=== PATIENT | male | born 1960 | race Caucasian/White ===

== ENCOUNTER 2018-05-06 17:12 | Inpatient (IN) ==
[2018-05-06] MEDS ORDERED: Sod Chloride 0.9% Inj 1,000 ML IV.SIG ONE (17:35)
--- NOTE | 2018-05-06 17:45 | ED ---
HPI General Chief Complaint: Syncope Stated Complaint: Medical Time Seen by Provider: 05/06/18 17:17 History of Present Illness HPI narrative: This patient had a syncopal episode. He has history of A. fib and CHF. He had 2 beers at a bar and while there was lightheaded and passed out. He was caught and let down and there was no injury. It is more moderate to severe. He did not have any chest pain or shortness of breath. He is found to be hypotensive. On arrival he is 82/44. He is in A. fib with RVR. Symptoms exacerbated by his cardiac condition and likely from alcohol and Xanax use. He took one 2 mg Xanax dose. He denies overdose or overmedication. He denies narcotics. No alleviating factors. Duration 1 hour Related Data Home Medications Medication Instructions Recorded Confirmed alprazolam [Xanax] 2 mg PO BID 05/06/18 05/06/18 apixaban [Eliquis] 5 mg PO BID 05/06/18 05/06/18 digoxin 0.25 mg PO DAILY 05/06/18 05/06/18 metoprolol tartrate 100 mg PO BID 05/06/18 05/06/18 sacubitril-valsartan [Entresto] 1 tab PO BID 05/06/18 05/06/18 Allergies Allergy/AdvReac Type Severity Reaction Status Date / Time Penicillins Allergy Chills Verified 05/06/18 17:14 Sulfa (Sulfonamide Allergy Arrhythmias Verified 05/06/18 17:14 Antibiotics) Review of Systems ROS: all other systems reviewed are negative PMFSH Medical History Medical History A-fib (Acute) CHF (congestive heart failure) (Acute) Social History Social History Substance History: Active Abuse Second Hand Smoke Exposure: No Smoking Status: Current some day smoker Tobacco Type: Cigarettes How Often Do You Have a Drink Containing Alcohol: 2 to 3 times a week Recent Travel in [facility] within the Last 8 Weeks: No Recent Out of Country Travel within the Last 8 Weeks: No Substance Abuse Detail Marijuana: Substance Use Status: Active Immunization History Tetanus Immunization: <5 Years Exam Narrative Exam Narrative: GENERAL: Well-nourished, well-developed patient who seems pale and lethargic . SKIN: Focused skin assessment reveals no rash and nodules. Skin is Warm and dry. HEAD: Atraumatic. Normocephalic. EYES: Pupils equal and round. No scleral icterus. No injection or drainage. ENT: No nasal bleeding or discharge. Mucous membranes pink and moist. NECK: Trachea midline. No JVD. No meningeal signs. No midline tenderness. CARDIOVASCULAR: Irregularly irregular rhythm. No murmur appreciated. Rate is variable between 100 -140 RESPIRATORY: No accessory muscle use. Clear to auscultation. Breath sounds equal bilaterally. GASTROINTESTINAL: Abdomen soft, non-tender, nondistended. Hepatic and splenic margins not palpable. MUSCULOSKELETAL: No obvious deformities. No clubbing. No cyanosis. No edema. NEUROLOGICAL: Awake but seems lethargic. No obvious cranial nerve deficits. Motor grossly within normal limits. Slowed but understandable speech. PSYCHIATRIC: Groggy and lethargic mood and affect; insight and judgment may be mildly impaired. Course Initial Documented Vital Signs Pulse Rate 115 H 05/06/18 17:23 Respiratory Rate 18 05/06/18 17:23 Blood Pressure 102/64 05/06/18 17:23 Pulse Oximetry 98 05/06/18 17:23 Last Documented Vital Signs Pulse Rate 72 05/06/18 18:38 Respiratory Rate 17 05/06/18 18:38 Blood Pressure 143/76 H 05/06/18 18:38 Pulse Oximetry 100 05/06/18 18:38 Critical Care Time Critical Care Time: Yes Total Critical Care Time: 80 Attestation: Aggregate critical care time was 80 minutes. Time to perform other separately billable procedures was not included in the critical care time. My time did not include minutes spent treating any other patients simultaneously or on activities that did not directly contribute to the patient's treatment. The services I provided to this patient were to treat and/or prevent clinically significant deterioration that could result in: Cardiopulmonary arrest, cardiac arrhythmia, hypovolemic shock I provided critical care services requiring my management, as noted below: Chart data review, documentation time, medication orders and management, vital sign assessments/reviewing monitor data, ordering and reviewing lab tests, ordering and interpreting/reviewing x-rays and diagnostic studies, care of the patient and discussion of the patient with the admitting physicians. Medical Decision Making MDM Narrative Medical decision making narrative: This is a 57-year-old male with syncope and arrives with some significant hypotension. He is running in the 70s and 80s systolic. He is alert and talking but seems a bit drowsy. I reviewed with cardiology given his A. fib and discussed synchronized cardioversion. Cardiology did not really recommend that given his rates are running between 90 and 120s and he doubts that would be the cause of his hypotension. Rectal exam is negative for blood in stool. His CBC is normal. He has no leukocytosis nor anemia nor fever. He walked into the bar feeling fine and abruptly became like this. I have given him 2.5 L of normal saline IV bolus and his blood pressure has not changed. Chest x-ray does not demonstrate any CHF. I placed a Hale catheter and he has no urine in the bladder. I am starting Levophed at 8 mcg/kg/min. I do not want to antagonize his heart rate any further with dopamine. Blood pressure started to come up it is now 88 systolic up from 68 when I started the Levophed. Troponin and dig levels are normal. CBC is normal. Metabolic studies fairly normal. Etiology of his hypotension is unclear. I spoke with the manager financial reporting who will admit to intensive care on the pressor support. He recommended a CTA of the chest which I have ordered. Medical Screen Exam Complete: Yes Emergency Medical Condition: Yes Lab Data Lab results narrative: Metabolic studies and cardiac enzymes and dig level and CBC all normal Result diagrams: 05/06/18 17:38 05/06/18 17:38 Lab Results 05/06/18 05/06/18 Range/Units 17:38 17:38 WBC 10.6 (4.0-11.0) th/mm3 RBC 4.41 L (4.50-5.90) mil/mm3 Hgb 13.7 (13.0-17.0) gm/dL Hct 39.3 (39.0-51.0) % MCV 89.0 (80.0-100.0) fL MCH 31.2 (27.0-34.0) pg MCHC 35.0 (32.0-36.0) % RDW 14.7 (11.6-17.2) % Plt Count 237 (150-450) th/mm3 MPV 8.2 (7.0-11.0) fL Neut % (Auto) 39.6 (16.0-70.0) % Lymph % (Auto) 48.4 H (9.0-44.0) % [place] % (Auto) 7.7 (0.0-8.0) % Eos % (Auto) 3.8 (0.0-4.0) % Baso % (Auto) 0.5 (0.0-2.0) % Neut # (Auto) 4.2 (1.8-7.7) th/mm3 Lymph # (Auto) 5.1 H (1.0-4.8) th/mm3 [place] # (Auto) 0.8 (0.0-0.9) th/mm3 Eos # (Auto) 0.4 (0.0-0.4) th/mm3 Baso # (Auto) 0.1 (0.0-0.2) th/mm3 WBC Differential . Differential Comment Auto diff final Sodium 141 (136-145) meq/L Potassium 3.8 (3.5-5.1) meq/L Chloride 105 (98-107) meq/L Carbon Dioxide 25.8 (21.0-32.0) meq/L Anion Gap 10 (5-15) meq/L BUN 19 H (7-18) mg/dL Creatinine 1.30 (0.60-1.30) mg/dL Estimated GFR 57 L (>89) mL/min Random Glucose 87 (74-106) mg/dL Calcium 7.7 L (8.5-10.1) mg/dL Total Bilirubin 0.6 (0.2-1.0) mg/dL AST 23 (15-37) U/L ALT 30 (12-78) U/L Alkaline Phosphatase 59 (45-117) U/L Total Creatine Kinase 52 (39-308) U/L Troponin I Less than 0.02 L (0.02-0.05) ng/mL Total Protein 6.0 L (6.4-8.2) g/dL Albumin 3.0 L (3.4-5.0) g/dL Digoxin 1.2 (0.8-2.0) ng/mL Serum Alcohol 21 H (0-5) mg/dL Imaging Data Attestation: I personally reviewed and interpreted this imaging study as follows : My impression: Chest x-ray shows no CHF. There is some left basilar atelectasis Radiologist's impression: Chest X-Ray 05/06/18 17:36 CONCLUSION: Left basilar infiltrates or atelectasis. Discharge Plan Discharge Disposition Patient Disposition: 30 Still Patient Discharge Details Diagnosis: Syncope due to orthostatic hypotension, Afib Physicians Team ED Provider: Darrick Henderson Rxs /Orders / Referrals /Forms Prescriptions: No Action metoprolol tartrate 100 mg Tablet 100 mg PO BID RF: 0 digoxin 250 mcg Tablet 0.25 mg PO DAILY RF: 0 apixaban [Eliquis] 5 mg Tablet 5 mg PO BID RF: 0 sacubitril-valsartan [Entresto] 24-26 mg Tablet 1 tab PO BID RF: 0 alprazolam [Xanax] 2 mg Tablet 2 mg PO BID RF: 0 Discharge Interventions Interventions: Vital Signs Last Done: 05/06/18 18:38 Status ED Status: Admitted Patient
[2018-05-06 17:47] LABS: Baso # (Auto) 0.1 th/mm3 (0.0-0.2); Baso % (Auto) 0.5 % (0.0-2.0); Eos # (Auto) 0.4 th/mm3 (0.0-0.4); Eos % (Auto) 3.8 % (0.0-4.0); Hematocrit 39.3 % (39.0-51.0); Hemoglobin 13.7 gm/dL (13.0-17.0); Lymph # (Auto) 5.1 th/mm3 (1.0-4.8); Lymph % (Auto) 48.4 % (9.0-44.0); Mean Corpuscular Hemoglobin 31.2 pg (27.0-34.0); Mean Platelet Volume 8.2 fL (7.0-11.0); Mono # (Auto) 0.8 th/mm3 (0.0-0.9); Mono % (Auto) 7.7 % (0.0-8.0); Neut # (Auto) 4.2 th/mm3 (1.8-7.7); Neut % (Auto) 39.6 % (16.0-70.0); Platelet Count 237 th/mm3 (150-450); Red Blood Count 4.41 mil/mm3 (4.50-5.90); Red Cell Distribution Width 14.7 % (11.6-17.2); White Blood Count 10.6 th/mm3 (4.0-11.0)
--- NOTE | 2018-05-06 17:53 | XR ---
EXAM DATE: 05/06/2018 5:49 PM EST AGE/SEX: 57 years / Male INDICATIONS: Syncope. Patient passed out today. CLINICAL DATA: This is the patient's initial encounter. Patient reports that signs and symptoms have been present for 1 day and indicates a pain score of 0/10. MEDICAL/SURGICAL HISTORY: Hypertension. None. COMPARISON: No prior exams available for comparison. FINDINGS: Frontal view of the chest demonstrates mild elevation of left hemidiaphragm and ill-defined areas of opacity obscuring portions of the left hemidiaphragm. The right lung is clear. The heart is normal in size. No evidence of mediastinal shift. No evidence of pneumothorax. CONCLUSION: Left basilar infiltrates or atelectasis. Electronically signed by: Hernandez Worley MD 05/06/2018 5:51 PM EST
[2018-05-06 18:11] LABS: Alanine Aminotransferase 30 U/L (12-78); Anion Gap 10 meq/L (5-15); Aspartate Aminotransferase 23 U/L (15-37); Blood Urea Nitrogen 19 mg/dL (7-18); Calcium 7.7 mg/dL (8.5-10.1); Carbon Dioxide 25.8 meq/L (21.0-32.0); Chloride 105 meq/L (98-107); Glomerular Filtration Rate 57 mL/min (>89); Glucose,Random 87 mg/dL (74-106); Potassium 3.8 meq/L (3.5-5.1); Sodium 141 meq/L (136-145)
[2018-05-06 18:14] LABS: Alcohol 21 mg/dL (0-5)
[2018-05-06] MEDS ORDERED: Norepinephrine Inj 4 MG/4 ML Ampul ONE (18:16)
[2018-05-06 18:25] LABS: Alkaline Phosphatase 59 U/L (45-117); Digoxin 1.2 ng/mL (0.8-2.0)
[2018-05-06 18:31] LABS: Creatine Kinase 52 U/L (39-308)
[2018-05-06 18:53] LABS: Amphetamine Screen,Urine Neg (Neg); Barbiturate Screen,Urine Neg (Neg); Cannabinoid Screen,Urine Pos (Neg); Cocaine Screen,Urine Neg (Neg)
[2018-05-06 18:57] LABS: Opiate Screen,Urine Neg (Neg)
[2018-05-06 19:00] LABS: Bilirubin,Urine Negative (Negative); Clarity,Urine Hazy (Clear); Color,Urine Yellow (Yellw/Straw); Glucose,Urine (UA) Negative (Negative); Hyaline Casts,Urine 7 /lpf (0-3); Leukocyte Esterase,Urine Negative (Negative); Mucus,Urine Few /lpf (Occasional); Nitrite,Urine Negative (Negative); Specific Gravity,Urine 1.009 (1.002-1.035); Squamous Epithelial Cell,Urine <1 /hpf (0-5)
[2018-05-06] MEDS ORDERED: Bisacodyl 10 MG Supp RECTAL PRN (19:13)
[2018-05-06] MEDS ORDERED: Digoxin Inj 500 MCG/2 ML Ampul IV.PUSH ONE (19:31)
[2018-05-06] MEDS ORDERED: Digoxin Inj 500 MCG/2 ML Ampul IV.PUSH STA (19:32)
--- NOTE | 2018-05-06 19:39 | CT ---
EXAM DATE: 05/06/2018 7:28 PM EST AGE/SEX: 57 years / Male INDICATIONS: syncopal episode. CLINICAL DATA: This is the patient's initial encounter. Patient reports that signs and symptoms have been present for 1 day and indicates a pain score of 0/10. MEDICAL/SURGICAL HISTORY: Cardiovascular disease. Afib None. RADIATION DOSE: 16.81 CTDI (mGy) COMPARISON: . TECHNIQUE: Volumetric scanning was performed using a multi-row detector CT scanner during bolus infu kelsey of 75 ml Omnipaque 350 (iohexol) nonionic water-soluble contrast as a single exam dose. The arlyn a was post processed with a variety of visualization algorithms including full volume maximum intensi ty projection and sliding thin slab reformation. Using automated exposure control and adjustment of t he mA and/or kV according to patient size, radiation dose was kept as low as reasonably achievable to obtain optimal diagnostic quality images. DICOM format image data is available electronically for r eview and comparison. FINDINGS: Pulmonary Arteries: No filling defects are seen in the pulmonary arteries out to the subsegmental ve ssels. The left and right pulmonary arteries are normal in diameter. Lung: Patchy left basilar infiltrates and subsegmental consolidation adjacent to the left heart bord er.. Small infiltrates in the dependent right midlung. Several pulmonary cysts in the medial left upp er lung. Effusion: None. Mediastinum: No evidence of mediastinal or hilar adenopathy. 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 Other: The axilla is unremarkable. CONCLUSION: 1. The study is negative for pulmonary embolism. 2. Patchy bibasilar infiltrates, left greater than right. Electronically signed by: Hernandez Worley MD 05/06/2018 7:38 PM EST
[2018-05-06] MEDS: Sod Chloride 0.9% Inj 1,000 ML IV.CONT SCH (19:41)
--- NOTE | 2018-05-06 19:51 | P.HPCC ---
History of Present Illness Service: critical care medicine Primary Care Physician: MARYELLEN HERNANDEZ Chief Complaint: Passed out History of Present Illness: 57-year-old male with a medical history significant for CHF, atrial fibrillation on anticoagulation with Eliquis who was recently started on Entresto about 10 days ago and has had a previous stress test per his around February 2018 after which he was told that he did not have any blockages and was diagnosed with a cardiomyopathy. He has been evaluated by Dr. Cruz of [facility] in the [facility] and was evaluated at [facility]. At that time he also had a left pneumothorax for which he required surgery. Patient was at a birthday libertarian today and suddenly passed out and fell to the ground. Patient cannot recall the event however his states that just prior to the event he was doing fine without any chest pain or shortness of breath. He has been feeling more tired over the last week since starting the Entresto. He denies any fevers, chills, chest pain or shortness of breath. In fact he is on room air however was extremely hypotensive on arrival with systolic blood pressure in the 60s and A. fib with RVR. His heart rate improved to the 90s-100s however he remained hypotensive despite 2.5 L of IV fluid bolus and was started on Levophed for pressor support by ER physician. Dr. Burns from [facility] was contacted by Dr. Carter earlier. Patient was accepted for admission by critical care medicine service. When I evaluated the patient in the ER he was on Levophed at 10 mics per minute with a systolic blood pressure 110. He was awake and alert on room air at the time, did not appear short of breath, denied any chest pain. He denied any focal weakness in either extremities or any speech disturbance. He has not had any diarrhea melena or rectal bleeding. Patient was evaluated about 10 days back per his was told "his heart function was around 35%"which is up from the initial 20% in February 2018. Inpatient Certification: I certify that the inpatient services were ordered in accordance with Medicare regulations governing the order. This includes certification that hospital inpatient services are reasonable and necessary and in the case of services not specified as inpatient-only under 42 CFR 419.22(n), that they are appropriately provided as inpatient services in accordance to with the 2-midnight benchmark under 43 CFR 412.3(e) Estimated Total Length of Stay (Days): 4 Plans for Post Hospital Care: Not yet determined Review of Systems All other systems reviewed negative except as stated in HPI [facility] - History History Provided By: Patient - Medical History Medical History: Medical History (Last Updated 05/06/18 @ 19:37 by Carlos Adames MD) A-fib CHF (congestive heart failure) Pneumothorax on left - Family History Family History: Family History (Last Updated 05/06/18 @ 19:38 by Carlos Adames MD) Mother Family history of diabetes mellitus Father Atrial fibrillation - Tobacco History Second Hand Smoke Exposure: No Tobacco Use In Past 30 Days: Yes Smoking Status: Current some day smoker Tobacco Type: Cigarettes - Alcohol History How Often Do You Have a Drink Containing Alcohol: 2 to 3 times a week - Substance Use History Substance History: Active Abuse - Substance Use Type Marijuana Status: Active - Travel History Recent Travel in the [place] Within the Last 8 Weeks: No Recent Travel Out of the Country Within the Last 8 Weeks: No - Immunization History Tetanus Immunization: <5 Years Medications and Allergies Active Medications: Active Medications Al Hydroxide/Mg Hydroxide (Milk Of Magnesia Liq) 30 ml PO Q12H PRN PRN Reason: Mild Constipation Bisacodyl (Dulcolax Supp) 10 mg RECTAL DAILY PRN PRN Reason: SEVERE CONSITIPATION Chlorhexidine Gluconate (Chlorhexidine 2% Cloth) 3 pack TOPICAL DAILY@0400 HILARIO Stop: 05/12/18 03:59 Chlorhexidine Gluconate (Chlorhexidine 2% Cloth) 3 pack TOPICAL DAILY@0400 PRN PRN Reason: Extra cloth needed Stop: 05/12/18 03:59 Digoxin (Lanoxin Inj) 500 mcg IV.PUSH ONCE STA Stop: 05/06/18 19:23 Famotidine (Pepcid Pf Inj) 20 mg IV.PUSH Q12HR HILARIO Norepinephrine Bitartrate (Levophed-Dextrose 4 Mg/250 Ml Drip) 4 mg in 250 mls @ 30 mls/hr IV.SIG TITRATE PRN; Protocol PRN Reason: Per Protocol Last Titration: 05/06/18 18:40 Dose: 10 mcg/min, 37.5 mls/hr Sodium Chloride (Ns Inj) 1,000 mls @ 60 mls/hr IV.CONT .[id number] HILARIO Lactulose (Lactulose Liq) 30 ml PO DAILY PRN PRN Reason: SEVERE CONSITIPATION Ondansetron HCl (Zofran Inj) 4 mg IV.PUSH Q6H PRN PRN Reason: NAUSEA OR VOMITING Senna/Docusate Sodium (Roshni-Colace) 1 tab PO BID [facility] Sennosides (Senokot) 17.2 mg PO Q12H PRN PRN Reason: Moderate Constipation Sodium Chloride (Ns Flush) 2 ml IV.FLUSH BID HILARIO Sodium Chloride (Ns Flush) 2 ml IV.FLUSH PRN PRN PRN Reason: FLUSH AFTER USING IV ACCESS Terbutaline Sulfate (Brethine Inj) 1 mg SQ UNSCH PRN PRN Reason: For Extravasation Allergies Allergy/AdvReac Type Severity Reaction Status Date / Time Penicillins Allergy Chills Verified 05/06/18 17:14 Sulfa (Sulfonamide Allergy Arrhythmias Verified 05/06/18 17:14 Antibiotics) Home Medications Medication Instructions Recorded Confirmed Type alprazolam [Xanax] 2 mg PO BID 05/06/18 05/06/18 History apixaban [Eliquis] 5 mg PO BID 05/06/18 05/06/18 History digoxin 0.25 mg PO DAILY 05/06/18 05/06/18 History metoprolol tartrate 100 mg PO BID 05/06/18 05/06/18 History sacubitril-valsartan [Entresto] 1 tab PO BID 05/06/18 05/06/18 History Results - Labs CBC & Chem 7: 05/06/18 17:38 05/06/18 17:38 Labs: Short CBC 05/06/18 Range/Units 17:38 WBC 10.6 (4.0-11.0) th/mm3 Hgb 13.7 (13.0-17.0) gm/dL Hct 39.3 (39.0-51.0) % Plt Count 237 (150-450) th/mm3 BMP 05/06/18 17:38 Sodium 141 Potassium 3.8 Chloride 105 Carbon Dioxide 25.8 BUN 19 H Creatinine 1.30 Calcium 7.7 L Cardiac Enzymes 05/06/18 Range/Units 17:38 Total Creatine Kinase 52 (39-308) U/L Troponin I Less than 0.02 L (0.02-0.05) ng/mL Liver Function 05/06/18 Range/Units 17:38 Total Bilirubin 0.6 (0.2-1.0) mg/dL AST 23 (15-37) U/L ALT 30 (12-78) U/L Alkaline Phosphatase 59 (45-117) U/L Albumin 3.0 L (3.4-5.0) g/dL Urine 05/06/18 Range/Units 18:40 Urine Color Yellow (Yellw/Straw) Urine Clarity Hazy H (Clear) Urine pH 5.0 (5.0-8.5) Ur Specific [place] 1.009 (1.002-1.035) Urine Protein Negative (Neg-Trace) mg/dL Urine Glucose (UA) Negative (Negative) mg/dL - Imaging Impressions Chest X-Ray 05/06/18 17:36 CONCLUSION: Left basilar infiltrates or atelectasis. Exam Vital signs: Vital Signs 05/06/18 17:23 05/06/18 17:25 05/06/18 17:29 Pulse Rate 115 H Respiratory Rate 18 Blood Pressure 102/64 98/44 L 82/44 L Pulse Oximetry 98 05/06/18 17:40 05/06/18 17:54 05/06/18 18:01 Pulse Rate 119 H 103 H Respiratory Rate 19 14 Blood Pressure 73/38 L 68/41 L 74/46 L Pulse Oximetry 97 98 05/06/18 18:06 05/06/18 18:20 05/06/18 18:27 Pulse Rate 100 H Respiratory Rate Blood Pressure 68/39 L 74/42 L 88/51 L Pulse Oximetry 05/06/18 18:29 05/06/18 18:33 05/06/18 18:38 Pulse Rate 66 72 Respiratory Rate 17 Blood Pressure 91/67 L 114/75 143/76 H Pulse Oximetry 100 05/06/18 18:50 Pulse Rate Respiratory Rate Blood Pressure 124/84 Pulse Oximetry Intake & Output 05/06/18 05/06/18 05/07/18 06:59 18:59 06:59 Intake Total 1000 / 1000 Balance 1000 / 1000 Weight 74.389 kg Intake: IV 1000 / 1000 NS Inj 1,000 ML @ Wide Open IV. 1000 / 1000 SIG BOLUS ONE Rx#:[id number] Narrative: HEENT/Neuro: No pallor or icterus, tongue moist, CHRISSY, Awake alert oriented 3 , nonfocal grossly, moving all 4 extremities Neck: No JVD Chest/pulmonary: CTA bilaterally Cardiovascular: S1-S2 regular no gallop or murmur GI/abdomen: Soft, nontender, bowel sounds present Extremities: Warm bilaterally, no edema Caprini VTE Risk Assessment Caprini VTE Risk Assessment: Moderate/High Risk (score >= 2) Caprini Risk Assessment Model: Point Value = 1 Point Value = 2 Point Value = 3 Point Value = 5 Age 41-60 Minor surgery BMI > 25 kg/m2 Swollen legs Varicose veins or History of unexplained or recurrent spontaneous Oral contraceptives or hormone replacement Sepsis (< 1 month) Serious lung disease, including pneumonia (< 1 month) Abnormal pulmonary function Acute myocardial infarction Congestive heart failure (< 1 month) History of inflammatory bowel disease Medical patient at bed rest Age 61-74 Arthroscopic surgery Major open surgery (> 45 min) Laparoscopic surgery (> 45 min) Malignancy Confined to bed (> 72 hours) Immobilizing plaster cast Central venous access Age >= 75 History of VTE Family history of VTE Factor V Leiden Prothrombin [id number] Lupus anticoagulant Anticardiolipin antibodies Elevated serum homocysteine Heparin-induced thrombocytopenia Other congenital or acquired thrombophilia Stroke (< 1 month) Elective arthroplasty Hip, pelvis, or leg fracture Acute spinal cord injury (< 1 month) Prophylaxis Regimen: Total Risk Factor Score Risk Level Prophylaxis Regimen 0-1 Low Early ambulation 2 Moderate Order ONE of the following: *Sequential Compression Device (SCD) *Heparin 5000 units SQ BID 3-4 Higher Order ONE of the following medications: *Heparin 5000 units SQ TID *Enoxaparin/Lovenox 40 mg SQ daily (WT < 150 kg, CrCl > 30 mL/min) *Enoxaparin/Lovenox 30 mg SQ daily (WT < 150 kg, CrCl > 10-29 mL/min) *Enoxaparin/Lovenox 30 mg SQ BID (WT < 150 kg, CrCl > 30 mL/min) AND/OR *Sequential Compression Device (SCD) 5 or more Highest Order ONE of the following medications: *Heparin 5000 units SQ TID (Preferred with Epidurals) *Enoxaparin/Lovenox 40 mg SQ daily (WT < 150 kg, CrCl > 30 mL/min) *Enoxaparin/Lovenox 30 mg SQ daily (WT < 150 kg, CrCl > 10-29 mL/min) *Enoxaparin/Lovenox 30 mg SQ BID (WT < 150 kg, CrCl > 30 mL/min) AND *Sequential Compression Device (SCD) Assessment and Plan - Assessment and Plan Plan: 57-year-old male with: Syncope Hypotension A. fib with RVR History of CHF Marijuana positive Plan: Neuro: Avoid sedatives. Follow neuro status Cardiovascular: Status post 2.5 L normal saline bolus. Continue Levophed for pressor support. Will add low-dose vasopressin in view of A. fib with RVR. Digoxin 0.5 mg IV now for rate control. Hold Entresto and metoprolol in view of hypotension. Will continue p.o. digoxin tomorrow. 2D echo ordered. Cardiology consult. Obtain medical records from [facility] regarding previous cardiac workup. Initial troponin negative. Follow-up BNP, lactate. Awaiting CT pulmonary angiogram though likelihood of PE is low in view of anticoagulation with Eliquis. Pulmonary: Supplemental O2 as needed. Watch for fluid overload GI/liver: Heart healthy diet Renal/: Strict intake output, monitor and replete electrodes, follow BUN/ creatinine. Hale catheter placed with no urine output initially. Will follow closely in view of history of CHF and cardiomyopathy. ID: Watch for fever. No leukocytosis at this time. Will hold off on any antibiotics at this time as doubt infection. Endocrine: Watch for hyperglycemia. SSI for glycemic control if needed. Prophylaxis: Pepcid, anticoagulated with Eliquis. Condition critical Time spent on critical care excluding procedures 50 minutes
[2018-05-06] MEDS: Vasopressin Inj 40 UNIT in Dextrose 5% in Water Inj 98 ML IV.CONT SCH ×2 (21:31)
[2018-05-06] MEDS: Famotidine PF Inj 20 MG/2 ML Vial IV.PUSH SCH (21:44)
[2018-05-06] MEDS: Senna/Docusate Sodium 8.6/50 MG Tablet PO SCH (21:45)
--- NOTE | 2018-05-07 03:43 | XR ---
EXAM DATE: 05/07/2018 3:40 AM EST AGE/SEX: 57 years / Male INDICATIONS: Shortness of breath, possible pulmonary disease. CLINICAL DATA: This is the patient's subsequent encounter. Patient reports that signs and symptoms h ave been present for 2 days and indicates a pain score of 0/10. MEDICAL/SURGICAL HISTORY: Hypertension. None. [place] [facility] [place]. . FINDINGS: Single view the chest demonstrates a persistent small infiltrate over left hemidiaphragm. Right lung is clear. Left upper lungs clear. Heart and mediastinum are unremarkable. CONCLUSION: Infiltrate remains left lung base. Rest of lungs are clear. Electronically signed by: Amadou Vargas MD 05/07/2018 3:42 AM EST
[2018-05-07] MEDS ORDERED: Chlorhexidine Gluconate 2% 1 Pack (2 Cloths) TOPICAL PRN (04:00)
[2018-05-07 04:25] LABS: Baso % (Auto) 0.5 % (0.0-2.0); Eos # (Auto) 0.2 th/mm3 (0.0-0.4); Eos % (Auto) 3.3 % (0.0-4.0); Hematocrit 37.1 % (39.0-51.0); Hemoglobin 12.6 gm/dL (13.0-17.0); Lymph # (Auto) 2.7 th/mm3 (1.0-4.8); Lymph % (Auto) 36.2 % (9.0-44.0); Mean Corpuscular HGB Conc 33.9 % (32.0-36.0); Mean Corpuscular Hemoglobin 30.2 pg (27.0-34.0); Mean Corpuscular Volume 89.1 fL (80.0-100.0); Mean Platelet Volume 7.6 fL (7.0-11.0); Mono # (Auto) 0.7 th/mm3 (0.0-0.9); Mono % (Auto) 9.2 % (0.0-8.0); Neut # (Auto) 3.8 th/mm3 (1.8-7.7); Neut % (Auto) 50.8 % (16.0-70.0); Platelet Count 192 th/mm3 (150-450); Red Blood Count 4.16 mil/mm3 (4.50-5.90); Red Cell Distribution Width 14.9 % (11.6-17.2); White Blood Count 7.5 th/mm3 (4.0-11.0)
[2018-05-07] MEDS ORDERED: Albumin Human 5% Inj 250 ML IV.SIG ONE (04:51)
[2018-05-07 04:59] LABS: Alanine Aminotransferase 25 U/L (12-78); Albumin 2.8 g/dL (3.4-5.0); Alkaline Phosphatase 60 U/L (45-117); Anion Gap 8 meq/L (5-15); Aspartate Aminotransferase 20 U/L (15-37); Blood Urea Nitrogen 15 mg/dL (7-18); Calcium 7.3 mg/dL (8.5-10.1); Carbon Dioxide 25.5 meq/L (21.0-32.0); Chloride 108 meq/L (98-107); Glomerular Filtration Rate 75 mL/min (>89); Glucose,Random 163 mg/dL (74-106); Magnesium 1.7 mg/dL (1.5-2.5); Phosphorus 3.6 mg/dL (2.5-4.9); Potassium 4.2 meq/L (3.5-5.1); Sodium 141 meq/L (136-145); Total Protein 5.4 g/dL (6.4-8.2)
[2018-05-07] MEDS: Chlorhexidine Gluconate 2% 1 Pack (2 Cloths) TOPICAL SCH (05:21)
[2018-05-07] MEDS ORDERED: Dextrose 50% in Water 50 ML Vial IV.PUSH PRN (07:57)
--- NOTE | 2018-05-07 07:59 | P.PNCC ---
Subjective Subjective Remarks/Hospital Course: 57-year-old male with a medical history significant for CHF, atrial fibrillation on anticoagulation with Eliquis who was recently started on Entresto about 10 days ago and has had a previous stress test per his around February 2018 after which he was told that he did not have any blockages and was diagnosed with a cardiomyopathy. He has been evaluated by Dr. Cruz of [facility] in the [facility] in [place] and was evaluated at [facility]. At that time he also had a left pneumothorax for which he required surgery. Patient was at a birthday republican today and suddenly passed out and fell to the ground. Patient cannot recall the event however his states that just prior to the event he was doing fine without any chest pain or shortness of breath. He has been feeling more tired over the last week since starting the Entresto. He denies any fevers, chills, chest pain or shortness of breath. In fact he is on room air however was extremely hypotensive on arrival with systolic blood pressure in the 60s and A. fib with RVR. His heart rate improved to the 90s-100s however he remained hypotensive despite 2.5 L of IV fluid bolus and was started on Levophed for pressor support by ER physician. Dr. Burns from [facility] was contacted by Dr. Carter earlier. Patient was accepted for admission by critical care medicine service. When I evaluated the patient in the ER he was on Levophed at 10 mics per minute with a systolic blood pressure 110. He was awake and alert on room air at the time, did not appear short of breath, denied any chest pain. He denied any focal weakness in either extremities or any speech disturbance. He has not had any diarrhea melena or rectal bleeding. Patient was evaluated about 10 days back per his was told "his heart function was around 35%"which is up from the initial 20% in February 2018. 05/07: Patient off levophed, vasopressin put on hold during my exam. Patient offers no complaints. He states that he's had episodes of "dizziness and sweating when I stand" on and off for several years but worse over the past week , since being started on Entresto. He reports prodromal symptoms prior to syncopal episode but denies chest pain, dyspnea, or palpitations during episode. Objective Vital Signs / I&O: Vital Signs 05/06/18 17:23 05/06/18 17:25 05/06/18 17:29 Temperature Pulse Rate 115 H Respiratory Rate 18 Blood Pressure 102/64 98/44 L 82/44 L Pulse Oximetry 98 05/06/18 17:40 05/06/18 17:54 05/06/18 18:01 Temperature Pulse Rate 119 H 103 H Respiratory Rate 19 14 Blood Pressure 73/38 L 68/41 L 74/46 L Pulse Oximetry 97 98 05/06/18 18:06 05/06/18 18:20 05/06/18 18:27 Temperature Pulse Rate 100 H Respiratory Rate Blood Pressure 68/39 L 74/42 L 88/51 L Pulse Oximetry 05/06/18 18:29 05/06/18 18:33 05/06/18 18:38 Temperature Pulse Rate 66 72 Respiratory Rate 17 Blood Pressure 91/67 L 114/75 143/76 H Pulse Oximetry 100 05/06/18 18:50 05/06/18 19:44 05/06/18 20:00 Temperature Pulse Rate 138 H 102 H Respiratory Rate 16 Blood Pressure 124/84 112/66 Pulse Oximetry 100 05/06/18 20:14 05/06/18 20:45 05/06/18 20:58 Temperature Pulse Rate 109 H 109 H 82 Respiratory Rate 16 16 17 Blood Pressure 100/63 109/65 Pulse Oximetry 96 99 05/06/18 21:00 05/06/18 21:02 05/06/18 21:15 Temperature Pulse Rate 87 91 H 98 H Respiratory Rate 13 13 11 L Blood Pressure 120/71 121/76 Pulse Oximetry 98 100 99 05/06/18 21:30 05/06/18 21:45 05/06/18 22:00 Temperature Pulse Rate 89 93 H 103 H Respiratory Rate 15 18 30 H Blood Pressure 107/63 119/76 Pulse Oximetry 99 98 95 05/06/18 22:01 05/06/18 22:15 05/06/18 22:16 Temperature 97.7 F Pulse Rate 102 H 99 H 99 H Respiratory Rate 20 18 15 Blood Pressure 102/60 109/70 Pulse Oximetry 98 99 99 05/06/18 22:30 05/06/18 22:31 05/06/18 22:45 Temperature Pulse Rate 98 H 93 H 94 H Respiratory Rate 30 H 17 15 Blood Pressure 122/56 L 98/55 L Pulse Oximetry 96 98 99 05/06/18 23:00 05/06/18 23:08 05/06/18 23:15 Temperature Pulse Rate 87 92 H 98 H Respiratory Rate 15 20 16 Blood Pressure 102/63 98/59 L Pulse Oximetry 98 99 98 05/06/18 23:30 05/06/18 23:45 05/07/18 00:00 Temperature 98.0 F Pulse Rate 86 99 H 91 H Respiratory Rate 20 14 15 Blood Pressure 97/66 L 94/52 L 90/54 L Pulse Oximetry 97 94 L 96 05/07/18 00:15 05/07/18 00:30 05/07/18 00:45 Temperature Pulse Rate 86 82 89 Respiratory Rate 14 12 12 Blood Pressure 98/73 L 106/59 L 108/58 L Pulse Oximetry 98 97 98 05/07/18 01:00 05/07/18 01:15 05/07/18 01:30 Temperature Pulse Rate 85 85 85 Respiratory Rate 12 14 13 Blood Pressure 116/64 110/60 101/53 L Pulse Oximetry 96 97 97 05/07/18 01:45 05/07/18 02:00 05/07/18 02:15 Temperature Pulse Rate 85 80 86 Respiratory Rate 14 14 13 Blood Pressure 99/60 L 98/55 L 104/56 L Pulse Oximetry 95 96 96 05/07/18 02:30 05/07/18 02:31 05/07/18 02:32 Temperature Pulse Rate 84 90 86 Respiratory Rate 14 13 14 Blood Pressure 90/59 L Pulse Oximetry 95 95 95 05/07/18 02:45 05/07/18 02:47 05/07/18 03:00 Temperature Pulse Rate 77 77 79 Respiratory Rate 13 13 13 Blood Pressure 94/63 L 92/67 L Pulse Oximetry 95 97 97 05/07/18 03:15 05/07/18 03:16 05/07/18 03:30 Temperature Pulse Rate 83 77 84 Respiratory Rate 16 12 12 Blood Pressure 100/68 101/63 Pulse Oximetry 94 L 98 96 05/07/18 03:45 05/07/18 04:00 05/07/18 04:15 Temperature 97.6 F Pulse Rate 71 67 73 Respiratory Rate 12 13 12 Blood Pressure 95/62 L 101/64 86/54 L Pulse Oximetry 98 97 98 05/07/18 04:30 05/07/18 04:45 05/07/18 05:00 Temperature Pulse Rate 72 84 71 Respiratory Rate 14 13 13 Blood Pressure 98/61 L 105/59 L 99/60 L Pulse Oximetry 98 97 98 05/07/18 05:15 05/07/18 05:30 05/07/18 05:45 Temperature Pulse Rate 81 90 73 Respiratory Rate 14 12 12 Blood Pressure 107/60 94/55 L 93/59 L Pulse Oximetry 97 97 98 05/07/18 06:00 Temperature Pulse Rate 93 H Respiratory Rate 12 Blood Pressure 98/57 L Pulse Oximetry 98 Intake & Output 05/06/18 05/07/18 05/07/18 18:59 06:59 18:59 Intake Total 1000 / 1000 490 / 490 Output Total 1100 / 1100 Balance 1000 / 1000 -610 / -610 Weight 74.389 kg 76 kg Intake: IV 1000 / 1000 250 / 250 Buminate 5% Inj 250 ML @ 250 250 / 250 mls/hr IV.SIG ONCE ONE Rx#: [id number] NS Inj 1,000 ML @ Wide Open IV. 1000 / 1000 SIG BOLUS ONE Rx#:[id number] Oral 240 / 240 Output: Urine Amount (Catheter) 1100 / 1100 Indwelling Urethral Catheter 1100 / 1100 Other: Weight On Admission 72 kg Result Diagrams: 05/07/18 04:15 05/07/18 04:15 Objective Remarks: GEN: No acute distress HEENT: NCAT, PERRL NECK: No JVD CARDIO: Irregularly irregular, HR 70s-80s PULM: Clear to auscultation bilaterally ABD/GI: Soft and non-tender throughout EXT/MSK: No peripheral edema, warm and well-perfused SKIN: No rashes or lesions NEURO: GCS 15, A&Ox3, no focal neuro deficits PSYCH: Calm, appropriate affect Assessment and Plan - Assessment and Plan Plan: 57-year-old male with: Syncope Hypotension A. fib with RVR History of CHF Marijuana positive Plan- Neuro -Follow neuro status. Continue home dose of xanax to avoid precipitating withdrawal Cardiovascular -Received 2.5 L normal saline bolus in ED -Levo turned off overnight, vasopressin held during my exam, MAPs 80s-90s. Digoxin 0.5 mg IV given last night for rate control -Hold Entresto and metoprolol in view of hypotension -Continue home dose of digoxin -2D echo -Cardiology consult. Obtain medical records from [facility] regarding previous cardiac workup -Trop negative x 2 -CTA chest negative for PE Pulmonary -Supplemental O2 as needed. Watch for fluid overload -CXR read as possible infiltrate but patient is afebrile, with no leukocytosis, reports no cough. He had a spontaneous PTX with talc pleurodesis on left in February, this is likely scar tissue. GI/liver -Cardiac diet Renal/ -Strict intake output, monitor and replete electrolytes, follow BUN/creatinine. Hale catheter placed with no urine output initially but has since made 1100 cc overnight. Will follow closely in view of history of CHF and cardiomyopathy. ID -Watch for fever. No leukocytosis at this time. Will hold off on any antibiotics at this time as doubt infection. Endocrine -Watch for hyperglycemia. SSI for glycemic control if needed. Prophylaxis: Pepcid, anticoagulated with Eliquis. Level 2 follow up To help prompt me to consider important information that might be impacting today's encounter and assessment, information from prior notes written by myself or my colleagues may have been "brought forward" into today's note. My signature on this note, however, is an attestation that I personally performed the exam, history, and/or decision-making noted today, and, unless otherwise indicated, the interactions with patient, family, and staff as well as the review of records all occurred today. I also attest that the listed assessment and stated plan reflect my best clinical judgment today based on the combination of historical information, prior notes, and today's exam/ interactions. Code Status: Full
[2018-05-07] MEDS: Senna/Docusate Sodium 8.6/50 MG Tablet PO SCH ×2 (09:00→20:23)
[2018-05-07] MEDS ORDERED: Calcium Gluconate Inj 1 GM in Dextrose 5% in Water Inj 100 ML IV.SIG ONE ×2 (09:00)
[2018-05-07] MEDS: Famotidine PF Inj 20 MG/2 ML Vial IV.PUSH SCH ×2 (09:00→20:23)
[2018-05-07] MEDS: Digoxin 250 MCG Tablet PO SCH (09:01)
[2018-05-07] MEDS: Vasopressin Inj 40 UNIT in Dextrose 5% in Water Inj 98 ML IV.CONT SCH ×2 (12:30)
--- NOTE | 2018-05-07 12:42 | MB ---
cc: Eric Burns MD DATE: 05/07/2018 REASON FOR CONSULTATION: Syncope. HISTORY OF PRESENT ILLNESS: The patient is a very pleasant 57-year-old gentleman who sees my partner, Dr. Cruz in [place] for a history of a nonischemic cardiomyopathy. The patient reports having an ejection fraction of approximately 35% up from about 20, and he says he has already had a cardiac catheterization showing normal coronary arteries. The patient had recently been started on Entresto. He was at a birthday constitution party yesterday. He admits to having a beer and hit of marijuana (and he takes Xanax regularly). It was his return to play a video game, he stood up abruptly and apparently passed out. He says he frequently gets orthostasis type symptoms, but has never actually passed out before. He was brought to the emergency department, initially was in a mildly rapid atrial fibrillation, which is chronic for him. He was given fluids and started on pressors, which have now been weaned off. The patient is currently asymptomatic and hoping to be discharged home soon. He has no symptoms whatsoever currently, no chest pain, shortness of breath, lightheadedness or dizziness. PAST MEDICAL HISTORY: 1. Nonischemic cardiomyopathy with recent ejection fraction of approximately 35%, per patient. 2. Chronic atrial fibrillation, on Eliquis. 3. Anxiety, on Xanax. CURRENT MEDICATIONS: 1. Xanax. 2. Eliquis 5 mg b.i.d. 3. Digoxin 250 mcg daily. 4. Pepcid. 5. Glucagon. ALLERGIES: PENICILLIN AND SULFA. PHYSICAL EXAMINATION: VITAL SIGNS: Afebrile, pulse 93, respiratory rate 12, BP 98/57, saturating 100% on 2 liters. GENERAL: Today reveals a pleasant gentleman in no distress. NECK: No JVD. LUNGS: Clear to auscultation bilaterally. CARDIOVASCULAR: Irregularly irregular rhythm with a regular rate. No murmurs appreciated. ABDOMEN: Benign. EXTREMITIES: No edema. LABORATORY DATA: White count 7.5, hematocrit 37.1, platelets 192. Sodium 141, potassium 4.2, chloride 108, bicarbonate 25.5, BUN 15, creatinine 1.03, glucose 163. Toxicology was positive for benzos and cannabinoids, as well as alcohol. Digoxin level was 1.2. EKG showed atrial fibrillation at a rate of [address] changes. Current telemetry shows atrial fibrillation at a rate of 90. ASSESSMENT AND PLAN: Syncope. The patient seems to have had an orthostatic syncopal episode caused by his baseline low blood pressures, recent addition of Entresto, and use of alcohol, benzodiazepines, and cannabinoids. Currently, his cardiomyopathy medications are being held, but his pressors are now off. The patient is asked to be discharged home. I will have him undergo an echocardiogram to ensure his ejection fraction is still at 35% or higher. 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 Thank you again for the opportunity to participate in the patient's care. MD ELISE Chou/diana , 09:37 AM , 09:44 AM
--- NOTE | 2018-05-07 14:33 | ECHRPT ---
Indication: SYNCOPE CONCLUSIONS The left ventricular systolic function is moderately reduced with an estimated ejection fraction in the range of 40-45%. Global hypokinesis. Normal left ventricular size. Wall thickness is normal. Mild mitral valve regurgitation. BP: / HR: Rhythm: Sinus MEASUREMENTS (Male / Female) Normal Values Technical Quality:Fair 2D ECHO LV Diastolic Diameter PLAX 5.2 cm 4.2 - 5.9 / 3.9 - 5.3 cm LV Systolic Diameter PLAX 3.5 cm IVS Diastolic Thickness 0.8 cm 0.6 - 1.0 / 0.6 - 0.9 cm LVPW Diastolic Thickness 0.8 cm 0.6 - 1.0 / 0.6 - 0.9 cm LV Relative Wall Thickness 0.3 RV Internal Dim ED PLAX 2.9 cm LVOT Diameter 2.1 cm Aortic Root Diameter 2.9 cm LA Systolic Diameter LX 3.5 cm 3.0 - 4.0 / 2.7 - 3.8 cm LV Ejection Fraction MOD BP 40.1 % >= 55 % LV Ejection Fraction MOD 4C 50.0 % LV Ejection Fraction 4C AL 50.4 % LV Ejection Fraction MOD 2C 31.4 % LV Ejection Fraction 2C AL 30.5 % M-MODE AV Cusp Separation MM 2.2 cm DOPPLER AV Peak Velocity 131.0 cm/s AV Peak Gradient 6.9 mmHg AV Mean Gradient 4.7 mmHg AV Velocity Time Integral 19.5 cm LVOT Peak Velocity 98.3 cm/s LVOT Peak Gradient 3.9 mmHg LVOT Velocity Time Integral 16.0 cm AV Area Cont Eq vti 2.8 cm AV Area Cont Eq pk 2.6 cm Mitral E Point Velocity 84.1 cm/s LV E' Lateral Velocity 18.4 cm/s Mitral E to LV E' Lateral Ratio 4.6 LV E' Septal Velocity 11.3 cm/s Mitral E to LV E' Septal Ratio 7.5 TR Peak Velocity 247.0 cm/s TR Peak Gradient 24.4 mmHg Right Atrial Pressure 10.0 mmHg Pulmonary Artery Systolic Pressu 34.4 mmHg Right Ventricular Systolic Press 34.4 mmHg PV Peak Velocity 39.1 cm/s PV Peak Gradient 0.6 mmHg FINDINGS LEFT VENTRICLE Normal left ventricular size. Wall thickness is normal. EF measured by [employer]ler's Bi-Plane is 40%. This is the 4 and 2 chamber. The left ventricular systolic function is moderately reduced with an estimated ejection fraction in the range of 40-45%. RIGHT VENTRICLE Normal right ventricular size and systolic function. LEFT ATRIUM The left atrial size is normal. RIGHT ATRIUM The right atrial size is normal. ATRIAL SEPTUM No atrial level shunt is demonstrated by color flow Doppler interrogation. AORTA The aortic root and proximal ascending aorta are not well visualized the aortic root and proximal as cending aorta are normal in size on limited imaging. MITRAL VALVE Mild mitral valve regurgitation. Eric Burns MD (Electronically Signed) Final Date:07 May 2018 14:32
[2018-05-07] MEDS: Sod Chloride 0.9% Inj 1,000 ML IV.CONT SCH (14:36)
--- NOTE | 2018-05-07 16:39 | ECG ---
Date Performed: 05/06/2018 Time Performed: 17:16:35 PTAGE: 57 years EKG: ATRIAL FIBRILLATION WITH RAPID VENTRICULAR RESPONSE NONSPECIFIC T-WAVE ABNORMALITY ABNORMAL RHYTHM ECG NO PREVIOUS TRACING DOCTOR: Sin Lombardi Interpretating Date/Time 05/07/2018 16:37:49
[2018-05-07] MEDS: Insulin NovoLOG Aspart Correctional Sugar Inj SQ SCH ×2 (18:17→20:22)
[2018-05-08 05:33] LABS: Baso % (Auto) 0.7 % (0.0-2.0); Eos # (Auto) 0.3 th/mm3 (0.0-0.4); Eos % (Auto) 5.4 % (0.0-4.0); Hematocrit 34.8 % (39.0-51.0); Hemoglobin 11.7 gm/dL (13.0-17.0); Lymph # (Auto) 2.1 th/mm3 (1.0-4.8); Lymph % (Auto) 35.1 % (9.0-44.0); Mean Corpuscular HGB Conc 33.5 % (32.0-36.0); Mean Corpuscular Hemoglobin 30.1 pg (27.0-34.0); Mean Corpuscular Volume 90.1 fL (80.0-100.0); Mean Platelet Volume 8.2 fL (7.0-11.0); Mono # (Auto) 0.6 th/mm3 (0.0-0.9); Mono % (Auto) 9.4 % (0.0-8.0); Neut % (Auto) 49.4 % (16.0-70.0); Platelet Count 146 th/mm3 (150-450); Red Blood Count 3.87 mil/mm3 (4.50-5.90); White Blood Count 6.1 th/mm3 (4.0-11.0)
[2018-05-08 06:03] LABS: Albumin 3.1 g/dL (3.4-5.0); Anion Gap 7 meq/L (5-15); Aspartate Aminotransferase 22 U/L (15-37); Blood Urea Nitrogen 13 mg/dL (7-18); Calcium 7.7 mg/dL (8.5-10.1); Carbon Dioxide 25.9 meq/L (21.0-32.0); Chloride 105 meq/L (98-107); Glomerular Filtration Rate Greater Than 89 mL/min (>89); Magnesium 1.6 mg/dL (1.5-2.5); Potassium 3.8 meq/L (3.5-5.1); Sodium 138 meq/L (136-145)
[2018-05-08 06:10] LABS: Alanine Aminotransferase 22 U/L (12-78); Alkaline Phosphatase 64 U/L (45-117); Total Protein 5.7 g/dL (6.4-8.2)
[2018-05-08] MEDS: Chlorhexidine Gluconate 2% 1 Pack (2 Cloths) TOPICAL SCH (06:44)
--- NOTE | 2018-05-08 08:18 | P.PNCC ---
Subjective Subjective Remarks/Hospital Course: 57-year-old male with a medical history significant for CHF, atrial fibrillation on anticoagulation with Eliquis who was recently started on Entresto about 10 days ago and has had a previous stress test per his around February 2018 after which he was told that he did not have any blockages and was diagnosed with a cardiomyopathy. He has been evaluated by Dr. Cruz of [facility] in the [facility] [place] and was evaluated at [facility]. At that time he also had a left pneumothorax for which he required surgery. Patient was at a birthday alliance party today and suddenly passed out and fell to the ground. Patient cannot recall the event however his states that just prior to the event he was doing fine without any chest pain or shortness of breath. He has been feeling more tired over the last week since starting the Entresto. He denies any fevers, chills, chest pain or shortness of breath. In fact he is on room air however was extremely hypotensive on arrival with systolic blood pressure in the 60s and A. fib with RVR. His heart rate improved to the 90s-100s however he remained hypotensive despite 2.5 L of IV fluid bolus and was started on Levophed for pressor support by ER physician. Dr. Burns from [facility] was contacted by Dr. Carter earlier. Patient was accepted for admission by critical care medicine service. When I evaluated the patient in the ER he was on Levophed at 10 mics per minute with a systolic blood pressure 110. He was awake and alert on room air at the time, did not appear short of breath, denied any chest pain. He denied any focal weakness in either extremities or any speech disturbance. He has not had any diarrhea melena or rectal bleeding. Patient was evaluated about 10 days back per his was told "his heart function was around 35%"which is up from the initial 20% in February 2018. 05/07: Patient off levophed, vasopressin put on hold during my exam. Patient offers no complaints. He states that he's had episodes of "dizziness and sweating when I stand" on and off for several years but worse over the past week , since being started on Entresto. He reports prodromal symptoms prior to syncopal episode but denies chest pain, dyspnea, or palpitations during episode. 05/08: Patient stayed off levophed x greater than 24 hours but has required vasopressin on and off throughout yesterday/ today, off since 4 AM this morning. The patient offers no complaints other than wanting to be discharged. Objective Vital Signs / I&O: Vital Signs 05/07/18 08:30 05/07/18 08:45 05/07/18 08:46 Temperature Pulse Rate 82 90 91 H Respiratory Rate 17 24 26 H Blood Pressure 108/72 121/72 Pulse Oximetry 96 88 L 89 L 05/07/18 09:00 05/07/18 09:15 05/07/18 09:30 Temperature Pulse Rate 78 84 93 H Respiratory Rate 14 13 14 Blood Pressure 107/62 103/63 94/53 L Pulse Oximetry 97 97 95 05/07/18 09:45 05/07/18 10:00 05/07/18 10:05 Temperature Pulse Rate 94 H 100 H 93 H Respiratory Rate 16 27 H 18 Blood Pressure 85/51 L 62/36 L 74/46 L Pulse Oximetry 97 94 L 97 05/07/18 10:11 05/07/18 10:15 05/07/18 10:20 Temperature Pulse Rate 85 73 79 Respiratory Rate 17 17 17 Blood Pressure 87/52 L 98/57 L 98/66 L Pulse Oximetry 99 99 100 05/07/18 10:25 05/07/18 10:30 05/07/18 10:35 Temperature Pulse Rate 86 99 H 84 Respiratory Rate 17 15 11 L Blood Pressure 92/53 L 87/51 L 89/53 L Pulse Oximetry 99 98 98 05/07/18 10:40 05/07/18 10:45 05/07/18 10:50 Temperature Pulse Rate 72 75 70 Respiratory Rate 12 14 16 Blood Pressure 100/60 94/63 L 92/59 L Pulse Oximetry 99 98 99 05/07/18 10:55 05/07/18 11:00 05/07/18 11:05 Temperature Pulse Rate 81 83 80 Respiratory Rate 11 L 13 17 Blood Pressure 97/67 L 102/59 L 104/68 Pulse Oximetry 99 98 97 05/07/18 11:10 05/07/18 11:15 05/07/18 11:16 Temperature Pulse Rate 82 71 81 Respiratory Rate 15 19 16 Blood Pressure 105/77 110/56 L Pulse Oximetry 97 95 98 05/07/18 11:20 05/07/18 11:25 05/07/18 12:30 Temperature Pulse Rate 70 69 Respiratory Rate 15 15 Blood Pressure 125/59 L 130/59 L 106/64 Pulse Oximetry 96 94 L 05/07/18 12:35 05/07/18 12:40 05/07/18 12:45 Temperature Pulse Rate 74 71 82 Respiratory Rate 20 17 20 Blood Pressure 104/76 104/64 Pulse Oximetry 97 100 93 L 05/07/18 12:46 05/07/18 12:50 05/07/18 12:55 Temperature Pulse Rate 79 70 59 L Respiratory Rate 22 13 19 Blood Pressure 100/63 109/57 L 100/65 Pulse Oximetry 89 L 98 98 05/07/18 13:00 05/07/18 13:01 05/07/18 13:05 Temperature Pulse Rate 69 73 75 Respiratory Rate 19 15 17 Blood Pressure 107/60 114/59 L Pulse Oximetry 97 98 98 05/07/18 13:10 05/07/18 13:15 05/07/18 13:26 Temperature Pulse Rate 62 70 88 Respiratory Rate 18 19 19 Blood Pressure 97/57 L 92/51 L 93/63 L Pulse Oximetry 95 91 L 89 L 05/07/18 13:30 05/07/18 13:31 05/07/18 13:36 Temperature Pulse Rate 80 90 82 Respiratory Rate 18 25 H 16 Blood Pressure 128/70 108/57 L Pulse Oximetry 92 L 91 L 89 L 05/07/18 13:41 05/07/18 13:45 05/07/18 13:50 Temperature Pulse Rate 79 82 66 Respiratory Rate 18 15 19 Blood Pressure 93/63 L 99/60 L 110/71 Pulse Oximetry 95 93 L 95 05/07/18 13:55 05/07/18 14:00 05/07/18 14:05 Temperature Pulse Rate 67 75 76 Respiratory Rate 20 19 21 Blood Pressure 95/65 L 99/57 L 102/62 Pulse Oximetry 96 95 97 05/07/18 14:10 05/07/18 14:15 05/07/18 14:16 Temperature Pulse Rate 65 91 H 79 Respiratory Rate 18 30 H 20 Blood Pressure 103/69 107/59 L Pulse Oximetry 95 05/07/18 14:20 05/07/18 14:30 05/07/18 14:31 Temperature Pulse Rate 85 70 82 Respiratory Rate 20 16 20 Blood Pressure 96/70 L 109/73 Pulse Oximetry 05/07/18 14:45 05/07/18 15:00 05/07/18 15:15 Temperature Pulse Rate 77 66 70 Respiratory Rate 18 16 16 Blood Pressure 118/65 Pulse Oximetry 05/07/18 15:30 05/07/18 15:45 05/07/18 16:00 Temperature Pulse Rate 65 72 71 Respiratory Rate 15 17 18 Blood Pressure 117/61 115/73 Pulse Oximetry 05/07/18 16:15 05/07/18 16:30 05/07/18 16:45 Temperature Pulse Rate 68 63 89 Respiratory Rate 17 17 31 H Blood Pressure 101/63 Pulse Oximetry 05/07/18 17:00 05/07/18 17:15 05/07/18 17:30 Temperature Pulse Rate 74 71 68 Respiratory Rate 19 22 19 Blood Pressure 108/74 107/65 Pulse Oximetry 98 05/07/18 17:45 05/07/18 18:00 05/07/18 18:01 Temperature Pulse Rate 74 93 H 78 Respiratory Rate 18 20 31 H Blood Pressure 113/69 Pulse Oximetry 99 93 L 95 05/07/18 18:15 05/07/18 18:30 05/07/18 19:00 Temperature Pulse Rate 74 70 66 Respiratory Rate 17 17 19 Blood Pressure 118/76 113/70 Pulse Oximetry 96 95 96 05/07/18 19:30 05/07/18 20:00 05/07/18 20:30 Temperature 97.8 F Pulse Rate 79 80 67 Respiratory Rate 16 19 17 Blood Pressure 119/79 129/70 123/70 Pulse Oximetry 96 96 96 05/07/18 21:00 05/07/18 21:30 05/07/18 22:00 Temperature Pulse Rate 65 65 77 Respiratory Rate 19 19 20 Blood Pressure 119/75 120/87 122/80 Pulse Oximetry 96 98 94 L 05/07/18 22:30 05/07/18 23:00 05/07/18 23:30 Temperature Pulse Rate 62 71 70 Respiratory Rate 17 19 18 Blood Pressure 130/68 131/92 H 118/95 H Pulse Oximetry 95 94 L 94 L 05/08/18 00:00 05/08/18 00:30 05/08/18 01:00 Temperature 97.8 F Pulse Rate 90 65 74 Respiratory Rate 16 17 18 Blood Pressure 110/73 110/61 108/74 Pulse Oximetry 94 L 93 L 93 L 05/08/18 01:30 05/08/18 02:00 05/08/18 02:30 Temperature Pulse Rate 71 69 72 Respiratory Rate 17 16 22 Blood Pressure 123/73 122/70 103/61 Pulse Oximetry 95 96 94 L 05/08/18 03:00 05/08/18 03:34 05/08/18 04:00 Temperature 97.7 F Pulse Rate 92 H 86 92 H Respiratory Rate 19 16 16 Blood Pressure 111/59 L 114/80 117/81 Pulse Oximetry 95 93 L 94 L 05/08/18 04:30 05/08/18 05:00 05/08/18 05:30 Temperature Pulse Rate 76 85 78 Respiratory Rate 19 16 16 Blood Pressure 111/77 93/64 L 92/60 L Pulse Oximetry 95 96 95 05/08/18 06:00 Temperature Pulse Rate 80 Respiratory Rate 20 Blood Pressure 88/51 L Pulse Oximetry 94 L Intake & Output 05/07/18 05/08/18 05/08/18 18:59 06:59 18:59 Intake Total 1760 / 1760 240 / 240 Output Total 700 / 700 350 / 350 Balance 1060 / 1060 -110 / -110 Weight 78.5 kg Intake: IV 1460 / 1460 NS Inj 1,000 ML @ 60 mls/hr IV. 1000 / 1000 CONT .[id number] [facility] Rx#:[id number] Pitressin Inj 40 UNIT In D5W 100 / 100 Inj 98 ML @ 0.04 UNITS/MIN 6 mls/hr IV.CONT CONT [facility] Rx#: [id number] Calcium Gluconate Inj 1 GM In 110 / 110 D5W Inj 100 ML @ 110 mls/hr IV. SIG ONCE ONE Rx#:[id number] Levophed-Dextrose 4 mg/250 ml 250 / 250 Drip 4 mg In 250 ml @ 8 MCG/MIN 30 mls/hr IV.SIG TITRATE PRN Rx#:[id number] Oral 300 / 300 240 / 240 Output: Urine 300 / 300 350 / 350 Urine Amount (Catheter) 400 / 400 Indwelling Urethral Catheter 400 / 400 Other: # Voids 1 Result Diagrams: 05/08/18 04:12 05/08/18 04:12 Objective Remarks: GEN: No acute distress HEENT: NCAT, PERRL NECK: No JVD CARDIO: Irregularly irregular, HR 90s-100s, MAP 90s PULM: Clear to auscultation bilaterally ABD/GI: Soft and non-tender throughout, non-distended EXT/MSK: No peripheral edema, warm and well-perfused SKIN: No rashes or lesions NEURO: GCS 15, A&Ox3, no focal neuro deficits PSYCH: Calm Assessment and Plan - Assessment and Plan Plan: 57-year-old male with: Syncope Hypotension A. fib with RVR History of CHF Marijuana positive Plan- Neuro -Continue home dose of xanax Cardiovascular -Vasopressin off since 4 AM, borderline tachy, will restart 1/2 home dose of lopressor (50 mg BID) and closely monitor BP -Hold Entresto for now -Continue home dose of digoxin -2D echo show ED 40-45%, global hypokinesis, PAP 34 mmHg, mild MR -Cardiology following, I spoke with Dr. Burns this morning who agrees Pulmonary -No O2 requirements -CXR read as possible infiltrate but patient is afebrile, with no leukocytosis, reports no cough. He had a spontaneous PTX with talc pleurodesis on left in February, this is likely scar tissue. GI/liver -Cardiac diet Renal/ -Monitor Is/Os, no need for fluid restriction -Electrolyte repletion protocol, keep Mg++ >2.0 and K++ >4.0 ID -No active issues Endocrine -Watch for hyperglycemia. SSI for glycemic control if needed. Prophylaxis: Pepcid, anticoagulated with Eliquis. Level 2 follow up To help prompt me to consider important information that might be impacting today's encounter and assessment, information from prior notes written by myself or my colleagues may have been "brought forward" into today's note. My signature on this note, however, is an attestation that I personally performed the exam, history, and/or decision-making noted today, and, unless otherwise indicated, the interactions with patient, family, and staff as well as the review of records all occurred today. I also attest that the listed assessment and stated plan reflect my best clinical judgment today based on the combination of historical information, prior notes, and today's exam/ interactions. Code Status: Full
--- NOTE | 2018-05-08 08:34 | P.PNCA ---
Subjective Interval history: Doing better, no complaints but had some lower bp's overnight requiring pressors Medications and Allergies Active Medications: Active Medications Al Hydroxide/Mg Hydroxide (Milk Of Magnesia Liq) 30 ml PO Q12H PRN PRN Reason: Mild Constipation Alprazolam (Xanax) 2 mg PO BID [facility] Last Admin: 05/07/18 20:21 Dose: 2 mg Apixaban (Eliquis) 5 mg PO BID [facility] Last Admin: 05/07/18 20:22 Dose: 5 mg Bisacodyl (Dulcolax Supp) 10 mg RECTAL DAILY PRN PRN Reason: SEVERE CONSITIPATION Chlorhexidine Gluconate (Chlorhexidine 2% Cloth) 3 pack TOPICAL DAILY@0400 [facility] Stop: 05/12/18 03:59 Last Admin: 05/08/18 06:44 Dose: 3 pack Chlorhexidine Gluconate (Chlorhexidine 2% Cloth) 3 pack TOPICAL DAILY@0400 PRN PRN Reason: Extra cloth needed Stop: 05/12/18 03:59 Dextrose (D50w Vial) 50 ml IV.PUSH UNSCH PRN PRN Reason: PER HYPOGLYCEMIA PROTOCOL Digoxin (Lanoxin) 250 mcg PO DAILY [facility] Last Admin: 05/07/18 09:01 Dose: 250 mcg Famotidine (Pepcid Pf Inj) 20 mg IV.PUSH Q12HR [facility] Last Admin: 05/07/18 20:23 Dose: 20 mg Glucagon (Glucagon Inj) 1 mg OTHER PRN PRN PRN Reason: for Hypoglycemia Protocol Sodium Chloride (Ns Inj) 1,000 mls @ 60 mls/hr IV.CONT .[id number] [facility] Last Admin: 05/07/18 14:36 Dose: 60 mls/hr Vasopressin 40 unit/ Dextrose 100 mls @ 6 mls/hr IV.CONT CONT [facility]; Protocol Last Infusion: 05/08/18 04:10 Dose: 0 units/min, 0 mls/hr Insulin Aspart (Novolog Insulin Correctional Sugar Inj) 0 unit SQ [facility]; Protocol Last Admin: 05/07/18 20:22 Dose: Not Given Lactulose (Lactulose Liq) 30 ml PO DAILY PRN PRN Reason: SEVERE CONSITIPATION Metoprolol Tartrate (Lopressor) 50 mg PO BID [facility] Ondansetron HCl (Zofran Inj) 4 mg IV.PUSH Q6H PRN PRN Reason: NAUSEA OR VOMITING Senna/Docusate Sodium (Roshni-Colace) 1 tab PO BID [facility] Last Admin: 05/07/18 20:23 Dose: Not Given Sennosides (Senokot) 17.2 mg PO Q12H PRN PRN Reason: Moderate Constipation Sodium Chloride (Ns Flush) 2 ml IV.FLUSH BID [facility] Last Admin: 05/07/18 20:23 Dose: 2 ml Sodium Chloride (Ns Flush) 2 ml IV.FLUSH UNSCH PRN PRN Reason: FLUSH AFTER USING IV ACCESS Allergies Allergy/AdvReac Type Severity Reaction Status Date / Time Penicillins Allergy Chills Verified 05/06/18 17:14 Sulfa (Sulfonamide Allergy Arrhythmias Verified 05/06/18 17:14 Antibiotics) Home Medications Medication Instructions Recorded Confirmed Type alprazolam [Xanax] 2 mg PO BID 05/06/18 05/06/18 History apixaban [Eliquis] 5 mg PO BID 05/06/18 05/06/18 History digoxin 0.25 mg PO DAILY 05/06/18 05/06/18 History metoprolol tartrate 100 mg PO BID 05/06/18 05/06/18 History sacubitril-valsartan [Entresto] 1 tab PO BID 05/06/18 05/06/18 History Physical Exam Vital signs: Vital Signs 05/07/18 08:45 05/07/18 08:46 05/07/18 09:00 Temperature Pulse Rate 90 91 H 78 Respiratory Rate 24 26 H 14 Blood Pressure 121/72 107/62 Pulse Oximetry 88 L 89 L 97 05/07/18 09:15 05/07/18 09:30 05/07/18 09:45 Temperature Pulse Rate 84 93 H 94 H Respiratory Rate 13 14 16 Blood Pressure 103/63 94/53 L 85/51 L Pulse Oximetry 97 95 97 05/07/18 10:00 05/07/18 10:05 05/07/18 10:11 Temperature Pulse Rate 100 H 93 H 85 Respiratory Rate 27 H 18 17 Blood Pressure 62/36 L 74/46 L 87/52 L Pulse Oximetry 94 L 97 99 05/07/18 10:15 05/07/18 10:20 05/07/18 10:25 Temperature Pulse Rate 73 79 86 Respiratory Rate 17 17 17 Blood Pressure 98/57 L 98/66 L 92/53 L Pulse Oximetry 99 100 99 05/07/18 10:30 05/07/18 10:35 05/07/18 10:40 Temperature Pulse Rate 99 H 84 72 Respiratory Rate 15 11 L 12 Blood Pressure 87/51 L 89/53 L 100/60 Pulse Oximetry 98 98 99 05/07/18 10:45 05/07/18 10:50 05/07/18 10:55 Temperature Pulse Rate 75 70 81 Respiratory Rate 14 16 11 L Blood Pressure 94/63 L 92/59 L 97/67 L Pulse Oximetry 98 99 99 05/07/18 11:00 05/07/18 11:05 05/07/18 11:10 Temperature Pulse Rate 83 80 82 Respiratory Rate 13 17 15 Blood Pressure 102/59 L 104/68 105/77 Pulse Oximetry 98 97 97 05/07/18 11:15 05/07/18 11:16 05/07/18 11:20 Temperature Pulse Rate 71 81 70 Respiratory Rate 19 16 15 Blood Pressure 110/56 L 125/59 L Pulse Oximetry 95 98 96 05/07/18 11:25 05/07/18 12:30 05/07/18 12:35 Temperature Pulse Rate 69 74 Respiratory Rate 15 20 Blood Pressure 130/59 L 106/64 104/76 Pulse Oximetry 94 L 97 05/07/18 12:40 05/07/18 12:45 05/07/18 12:46 Temperature Pulse Rate 71 82 79 Respiratory Rate 17 20 22 Blood Pressure 104/64 100/63 Pulse Oximetry 100 93 L 89 L 05/07/18 12:50 05/07/18 12:55 05/07/18 13:00 Temperature Pulse Rate 70 59 L 69 Respiratory Rate 13 19 19 Blood Pressure 109/57 L 100/65 Pulse Oximetry 98 98 97 05/07/18 13:01 05/07/18 13:05 05/07/18 13:10 Temperature Pulse Rate 73 75 62 Respiratory Rate 15 17 18 Blood Pressure 107/60 114/59 L 97/57 L Pulse Oximetry 98 98 95 05/07/18 13:15 05/07/18 13:26 05/07/18 13:30 Temperature Pulse Rate 70 88 80 Respiratory Rate 19 19 18 Blood Pressure 92/51 L 93/63 L Pulse Oximetry 91 L 89 L 92 L 05/07/18 13:31 11/18/18 13:36 05/07/18 13:41 Temperature Pulse Rate 90 82 79 Respiratory Rate 25 H 16 18 Blood Pressure 128/70 108/57 L 93/63 L Pulse Oximetry 91 L 89 L 95 05/07/18 13:45 05/07/18 13:50 05/07/18 13:55 Temperature Pulse Rate 82 66 67 Respiratory Rate 15 19 20 Blood Pressure 99/60 L 110/71 95/65 L Pulse Oximetry 93 L 95 96 05/07/18 14:00 05/07/18 14:05 05/07/18 14:10 Temperature Pulse Rate 75 76 65 Respiratory Rate 19 21 18 Blood Pressure 99/57 L 102/62 103/69 Pulse Oximetry 95 97 95 05/07/18 14:15 05/07/18 14:16 05/07/18 14:20 Temperature Pulse Rate 91 H 79 85 Respiratory Rate 30 H 20 20 Blood Pressure 107/59 L 96/70 L Pulse Oximetry 05/07/18 14:30 05/07/18 14:31 05/07/18 14:45 Temperature Pulse Rate 70 82 77 Respiratory Rate 16 20 18 Blood Pressure 109/73 Pulse Oximetry 05/07/18 15:00 05/07/18 15:15 05/07/18 15:30 Temperature Pulse Rate 66 70 65 Respiratory Rate 16 16 15 Blood Pressure 118/65 117/61 Pulse Oximetry 05/07/18 15:45 05/07/18 16:00 05/07/18 16:15 Temperature Pulse Rate 72 71 68 Respiratory Rate 17 18 17 Blood Pressure 115/73 Pulse Oximetry 05/07/18 16:30 05/07/18 16:45 05/07/18 17:00 Temperature Pulse Rate 63 89 74 Respiratory Rate 17 31 H 19 Blood Pressure 101/63 108/74 Pulse Oximetry 05/07/18 17:15 05/07/18 17:30 05/07/18 17:45 Temperature Pulse Rate 71 68 74 Respiratory Rate 22 19 18 Blood Pressure 107/65 Pulse Oximetry 98 99 05/07/18 18:00 05/07/18 18:01 05/07/18 18:15 Temperature Pulse Rate 93 H 78 74 Respiratory Rate 20 31 H 17 Blood Pressure 113/69 Pulse Oximetry 93 L 95 96 05/07/18 18:30 05/07/18 19:00 05/07/18 19:30 Temperature Pulse Rate 70 66 79 Respiratory Rate 17 19 16 Blood Pressure 118/76 113/70 119/79 Pulse Oximetry 95 96 96 05/07/18 20:00 05/07/18 20:30 05/07/18 21:00 Temperature 97.8 F Pulse Rate 80 67 65 Respiratory Rate 19 17 19 Blood Pressure 129/70 123/70 119/75 Pulse Oximetry 96 96 96 05/07/18 21:30 05/07/18 22:00 05/07/18 22:30 Temperature Pulse Rate 65 77 62 Respiratory Rate 19 20 17 Blood Pressure 120/87 122/80 130/68 Pulse Oximetry 98 94 L 95 05/07/18 23:00 05/07/18 23:30 05/08/18 00:00 Temperature 97.8 F Pulse Rate 71 70 90 Respiratory Rate 19 18 16 Blood Pressure 131/92 H 118/95 H 110/73 Pulse Oximetry 94 L 94 L 94 L 05/08/18 00:30 05/08/18 01:00 05/08/18 01:30 Temperature Pulse Rate 65 74 71 Respiratory Rate 17 18 17 Blood Pressure 110/61 108/74 123/73 Pulse Oximetry 93 L 93 L 95 05/08/18 02:00 05/08/18 02:30 05/08/18 03:00 Temperature Pulse Rate 69 72 92 H Respiratory Rate 16 22 19 Blood Pressure 122/70 103/61 111/59 L Pulse Oximetry 96 94 L 95 05/08/18 03:34 05/08/18 04:00 05/08/18 04:30 Temperature 97.7 F Pulse Rate 86 92 H 76 Respiratory Rate 16 16 19 Blood Pressure 114/80 117/81 111/77 Pulse Oximetry 93 L 94 L 95 05/08/18 05:00 05/08/18 05:30 05/08/18 06:00 Temperature Pulse Rate 85 78 80 Respiratory Rate 16 16 20 Blood Pressure 93/64 L 92/60 L 88/51 L Pulse Oximetry 96 95 94 L Intake & Output 05/07/18 05/08/18 05/08/18 18:59 06:59 18:59 Intake Total 1760 / 1760 240 / 240 Output Total 700 / 700 350 / 350 Balance 1060 / 1060 -110 / -110 Weight 78.5 kg Intake: IV 1460 / 1460 NS Inj 1,000 ML @ 60 mls/hr IV. 1000 / 1000 CONT .[id number] [facility] Rx#:[id number] Pitressin Inj 40 UNIT In D5W 100 / 100 Inj 98 ML @ 0.04 UNITS/MIN 6 mls/hr IV.CONT CONT [facility] Rx#: [id number] Calcium Gluconate Inj 1 GM In 110 / 110 D5W Inj 100 ML @ 110 mls/hr IV. SIG ONCE ONE Rx#:[id number] Levophed-Dextrose 4 mg/250 ml 250 / 250 Drip 4 mg In 250 ml @ 8 MCG/MIN 30 mls/hr IV.SIG TITRATE PRN Rx#:[id number] Oral 300 / 300 240 / 240 Output: Urine 300 / 300 350 / 350 Urine Amount (Catheter) 400 / 400 Indwelling Urethral Catheter 400 / 400 Other: # Voids 1 - Constitutional no acute distress - Routine HEENT Exam Head: Present: normocephalic Eye: Present: EOMI ENT: Present: mucous membranes moist - Routine Neck Exam Present: supple. Absent: JVD - Routine Respiratory Exam Present: CTA bilaterally - Routine Cardiovascular Exam Present: irregular rhythm. Absent: murmur - Urinary Catheter Management Indwelling Urethral Catheter Cath placed during this visit: yes, but has since been removed by the nurse Reason for continuing: Decision to DC catheter Insertion date: 05/06/18 Insertion time: 18:00 Removal date: 05/07/18 Removal time: 11:00 Results 05/08/18 04:12 05/08/18 04:12 Cardiac Enzymes 05/06/18 05/06/18 05/07/18 Range/Units 17:38 17:38 04:15 AST 23 20 (15-37) U/L Troponin I Less than 0.02 L Less than 0.02 L (0.02-0.05) ng/mL B-Natriuretic Peptide 43 (0-100) pg/mL 05/08/18 Range/Units 04:12 AST 22 (15-37) U/L Troponin I (0.02-0.05) ng/mL B-Natriuretic Peptide (0-100) pg/mL Coagulation 05/06/18 Range/Units 17:38 B-Natriuretic Peptide 43 (0-100) pg/mL CBC 05/06/18 05/07/18 05/08/18 Range/Units 17:38 04:15 04:12 WBC 10.6 7.5 6.1 (4.0-11.0) th/mm3 RBC 4.41 L 4.16 L 3.87 L (4.50-5.90) mil/mm3 Hgb 13.7 12.6 L 11.7 L (13.0-17.0) gm/dL Hct 39.3 37.1 L 34.8 L (39.0-51.0) % Plt Count 237 192 146 L (150-450) th/mm3 Neut # (Auto) 4.2 3.8 3.0 (1.8-7.7) th/mm3 Lymph # (Auto) 5.1 H 2.7 2.1 (1.0-4.8) th/mm3 [place] # (Auto) 0.8 0.7 0.6 (0.0-0.9) th/mm3 Eos # (Auto) 0.4 0.2 0.3 (0.0-0.4) th/mm3 Baso # (Auto) 0.1 0.0 0.0 (0.0-0.2) th/mm3 Comprehensive Metabolic Panel 05/06/18 05/07/18 05/08/18 Range/Units 17:38 04:15 04:12 Sodium 141 141 138 (136-145) meq/L Potassium 3.8 4.2 3.8 (3.5-5.1) meq/L Chloride 105 108 H 105 (98-107) meq/L Carbon Dioxide 25.8 25.5 25.9 (21.0-32.0) meq/L BUN 19 H 15 13 (7-18) mg/dL Creatinine 1.30 1.03 0.77 (0.60-1.30) mg/dL Calcium 7.7 L 7.3 L* 7.7 L (8.5-10.1) mg/dL AST 23 20 22 (15-37) U/L ALT 30 25 22 (12-78) U/L Alkaline Phosphatase 59 60 64 (45-117) U/L Total Protein 6.0 L 5.4 L D 5.7 L (6.4-8.2) g/dL Albumin 3.0 L 2.8 L 3.1 L (3.4-5.0) g/dL Intake and Output 05/07/18 05/08/18 05/08/18 22:59 06:59 14:59 Intake Total 300 / 300 240 / 240 Output Total 700 / 700 350 / 350 Balance -400 / -400 -110 / -110 Intake: Oral 300 / 300 240 / 240 Output: Urine 300 / 300 350 / 350 Urine Amount (Catheter) 400 / 400 Indwelling Urethral Catheter 400 / 400 Other: # Voids 1 Weight 78.5 kg - Imaging and Cardiology Imaging: Impressions Chest X-Ray 05/06/18 17:36 CONCLUSION: Left basilar infiltrates or atelectasis. Chest CTA 05/06/18 18:38 CONCLUSION: 1. The study is negative for pulmonary embolism. 2. Patchy bibasilar infiltrates, left greater than right. Chest X-Ray 05/07/18 05:00 CONCLUSION: Infiltrate remains left lung base. Rest of lungs are clear. Assessment and Plan - Assessment (1) NICM (nonischemic cardiomyopathy) Code(s): I42.8 - Other cardiomyopathies Status: Acute Plan: entresto (and bert/arb) held due to lower bp's, LVEF actually higher by echo here than he reports, metoprolol to be restarted at 50mg bid (2) Syncope due to orthostatic hypotension Code(s): I95.1 - Orthostatic hypotension Status: Acute Plan: some fluid liberalization, reduction in meds, he should avoid mixing meds w/ etoh/xanax/marajuana (3) Afib Code(s): I48.91 - Unspecified atrial fibrillation Status: Acute Plan: rate controlled, on eliquis - Plan Hopefully can move out of ICU today, perhaps d/c home tomorrow.
[2018-05-08] MEDS: Metoprolol Tartrate 100 MG Tablet PO SCH ×2 (09:41→20:18)
[2018-05-08] MEDS: Digoxin 250 MCG Tablet PO SCH (09:42)
[2018-05-08] MEDS: Insulin NovoLOG Aspart Correctional Sugar Inj SQ SCH ×4 (09:42→20:24)
[2018-05-08] MEDS: Famotidine PF Inj 20 MG/2 ML Vial IV.PUSH SCH ×2 (09:42→20:20)
[2018-05-08] MEDS: Senna/Docusate Sodium 8.6/50 MG Tablet PO SCH ×2 (09:42→20:20)
[2018-05-08] MEDS: Sod Chloride 0.9% Inj 1,000 ML IV.CONT SCH (09:43)
[2018-05-09] MEDS: Chlorhexidine Gluconate 2% 1 Pack (2 Cloths) TOPICAL SCH (03:05)
[2018-05-09 06:17] LABS: Baso # (Auto) 0.1 th/mm3 (0.0-0.2); Baso % (Auto) 0.8 % (0.0-2.0); Eos # (Auto) 0.4 th/mm3 (0.0-0.4); Hematocrit 38.4 % (39.0-51.0); Lymph # (Auto) 2.4 th/mm3 (1.0-4.8); Lymph % (Auto) 37.4 % (9.0-44.0); Mean Corpuscular HGB Conc 33.7 % (32.0-36.0); Mean Corpuscular Hemoglobin 30.3 pg (27.0-34.0); Mean Corpuscular Volume 89.8 fL (80.0-100.0); Mean Platelet Volume 8.1 fL (7.0-11.0); Mono # (Auto) 0.6 th/mm3 (0.0-0.9); Neut % (Auto) 46.8 % (16.0-70.0); Platelet Count 171 th/mm3 (150-450); Red Blood Count 4.28 mil/mm3 (4.50-5.90); Red Cell Distribution Width 15.1 % (11.6-17.2); White Blood Count 6.5 th/mm3 (4.0-11.0)
[2018-05-09 06:42] LABS: Anion Gap 6 meq/L (5-15); Aspartate Aminotransferase 20 U/L (15-37); Blood Urea Nitrogen 11 mg/dL (7-18); Calcium 8.2 mg/dL (8.5-10.1); Carbon Dioxide 28.4 meq/L (21.0-32.0); Chloride 109 meq/L (98-107); Glomerular Filtration Rate Greater Than 89 mL/min (>89); Magnesium 1.8 mg/dL (1.5-2.5); Sodium 143 meq/L (136-145)
[2018-05-09 06:43] LABS: Alanine Aminotransferase 22 U/L (12-78)
[2018-05-09 06:45] LABS: Alkaline Phosphatase 65 U/L (45-117); Total Protein 5.7 g/dL (6.4-8.2)
[2018-05-09] MEDS: Famotidine PF Inj 20 MG/2 ML Vial IV.PUSH SCH (08:09)
[2018-05-09] MEDS: Digoxin 250 MCG Tablet PO SCH (08:09)
[2018-05-09] MEDS: Senna/Docusate Sodium 8.6/50 MG Tablet PO SCH (08:09)
--- NOTE | 2018-05-09 08:22 | P.PNCA ---
Subjective Interval history: Pt doing well, no complaints, wants to go home. Medications and Allergies Active Medications: Active Medications Al Hydroxide/Mg Hydroxide (Milk Of Magnesia Liq) 30 ml PO Q12H PRN PRN Reason: Mild Constipation Alprazolam (Xanax) 2 mg PO BID [facility] Last Admin: 05/08/18 20:20 Dose: 2 mg Apixaban (Eliquis) 5 mg PO BID [facility] Last Admin: 05/08/18 20:18 Dose: 5 mg Bisacodyl (Dulcolax Supp) 10 mg RECTAL DAILY PRN PRN Reason: SEVERE CONSITIPATION Chlorhexidine Gluconate (Chlorhexidine 2% Cloth) 3 pack TOPICAL DAILY@0400 [facility] Stop: 05/12/18 03:59 Last Admin: 05/09/18 03:05 Dose: 3 pack Chlorhexidine Gluconate (Chlorhexidine 2% Cloth) 3 pack TOPICAL DAILY@0400 PRN PRN Reason: Extra cloth needed Stop: 05/12/18 03:59 Dextrose (D50w Vial) 50 ml IV.PUSH UNSCH PRN PRN Reason: PER HYPOGLYCEMIA PROTOCOL Digoxin (Lanoxin) 250 mcg PO DAILY [facility] Last Admin: 05/08/18 09:42 Dose: 250 mcg Famotidine (Pepcid Pf Inj) 20 mg IV.PUSH Q12HR [facility] Last Admin: 05/08/18 20:20 Dose: 20 mg Glucagon (Glucagon Inj) 1 mg OTHER PRN PRN PRN Reason: for Hypoglycemia Protocol Vasopressin 40 unit/ Dextrose 100 mls @ 6 mls/hr IV.CONT CONT [facility]; Protocol Last Infusion: 05/08/18 07:00 Dose: Infused Insulin Aspart (Novolog Insulin Correctional Sugar Inj) [facility] Protocol Last Admin: 05/08/18 20:24 Dose: Not Given Lactulose (Lactulose Liq) 30 ml PO DAILY PRN PRN Reason: SEVERE CONSITIPATION Metoprolol Tartrate (Lopressor) 50 mg PO BID [facility] Miscellaneous (Pill Splitter) 1 each OTHER UNSCH PRN PRN Reason: PILL SPLITTER Ondansetron HCl (Zofran Inj) 4 mg IV.PUSH Q6H PRN PRN Reason: NAUSEA OR VOMITING Senna/Docusate Sodium (Roshni-Colace) 1 tab PO BID [facility] Last Admin: 05/08/18 20:20 Dose: Not Given Sennosides (Senokot) 17.2 mg PO Q12H PRN PRN Reason: Moderate Constipation Sodium Chloride (Ns Flush) 2 ml IV.FLUSH BID [facility] Last Admin: 05/08/18 20:20 Dose: 2 ml Sodium Chloride (Ns Flush) 2 ml IV.FLUSH UNSCH PRN PRN Reason: FLUSH AFTER USING IV ACCESS Allergies Allergy/AdvReac Type Severity Reaction Status Date / Time Penicillins Allergy Chills Verified 05/06/18 17:14 Sulfa (Sulfonamide Allergy Arrhythmias Verified 05/06/18 17:14 Antibiotics) Home Medications Medication Instructions Recorded Confirmed Type alprazolam [Xanax] 2 mg PO BID 05/06/18 05/06/18 History apixaban [Eliquis] 5 mg PO BID 05/06/18 05/06/18 History digoxin 0.25 mg PO DAILY 05/06/18 05/06/18 History metoprolol tartrate 100 mg PO BID 05/06/18 05/06/18 History sacubitril-valsartan [Entresto] 1 tab PO BID 05/06/18 05/06/18 History Physical Exam Vital signs: Vital Signs 05/08/18 08:30 05/08/18 09:00 05/08/18 09:18 Temperature Pulse Rate 93 H 108 H Respiratory Rate 18 17 Blood Pressure 103/67 104/68 Pulse Oximetry 94 L 95 96 05/08/18 09:30 05/08/18 10:00 05/08/18 10:01 Temperature Pulse Rate 95 H 114 H 118 H Respiratory Rate 19 25 H 17 Blood Pressure 114/68 116/60 116/60 Pulse Oximetry 97 95 96 05/08/18 10:30 05/08/18 11:00 05/08/18 12:00 Temperature 97.9 F Pulse Rate 101 H 99 H 94 H Respiratory Rate 18 19 23 Blood Pressure 105/59 L 109/57 L 105/60 Pulse Oximetry 99 96 95 05/08/18 12:24 05/08/18 13:00 05/08/18 13:30 Temperature Pulse Rate 95 H 98 H 99 H Respiratory Rate 19 21 50 H Blood Pressure 105/60 112/64 106/58 L Pulse Oximetry 94 L 96 95 05/08/18 14:01 05/08/18 14:02 05/08/18 14:30 Temperature Pulse Rate 102 H 93 H 100 H Respiratory Rate 26 H 21 22 Blood Pressure 100/65 102/64 Pulse Oximetry 96 93 L 94 L 05/08/18 15:00 05/08/18 15:30 05/08/18 16:00 Temperature 98.7 F Pulse Rate 97 H 95 H 95 H Respiratory Rate 16 19 22 Blood Pressure 112/69 115/62 112/70 Pulse Oximetry 96 95 95 05/08/18 16:30 05/08/18 17:00 05/08/18 17:01 Temperature Pulse Rate 103 H 107 H 107 H Respiratory Rate 20 24 24 Blood Pressure 109/70 121/60 121/60 Pulse Oximetry 98 93 L 90 L 05/08/18 17:40 05/08/18 18:00 05/08/18 19:02 Temperature Pulse Rate 107 H 103 H 103 H Respiratory Rate 19 21 32 H Blood Pressure 106/76 106/76 Pulse Oximetry 92 L 93 L 05/08/18 20:00 05/08/18 20:19 05/08/18 21:00 Temperature 98.5 F Pulse Rate 101 H 93 H Respiratory Rate 21 27 H Blood Pressure Pulse Oximetry 98 97 97 05/08/18 22:00 05/08/18 22:23 05/08/18 23:00 Temperature Pulse Rate 94 H 96 H 96 H Respiratory Rate 21 24 18 Blood Pressure 114/78 116/65 Pulse Oximetry 97 97 05/09/18 00:00 05/09/18 01:00 05/09/18 02:00 Temperature 98.7 F Pulse Rate 96 H 93 H 80 Respiratory Rate 15 20 18 Blood Pressure 118/75 113/65 120/68 Pulse Oximetry 95 93 L 93 L 05/09/18 03:00 05/09/18 04:00 05/09/18 05:00 Temperature 98.6 F Pulse Rate 100 H 80 97 H Respiratory Rate 21 18 17 Blood Pressure 113/66 108/64 Pulse Oximetry 94 L 93 L 05/09/18 05:01 05/09/18 06:00 Temperature Pulse Rate 96 H 87 Respiratory Rate 18 20 Blood Pressure 136/77 114/64 Pulse Oximetry Intake & Output 05/08/18 05/09/18 05/09/18 18:59 06:59 18:59 Intake Total 1779 / 1779 1170 / 1170 Output Total 2800 / 2800 1200 / 1200 Balance -1021 / -1021 -30 / -30 Weight 78 kg Intake: IV 1059 / 1059 450 / 450 NS Inj 1,000 ML @ 60 mls/hr IV. 1000 / 1000 450 / 450 CONT .[id number] [facility] Rx#:[id number] Pitressin Inj 40 UNIT In D5W 59 / 59 Inj 98 ML @ 0.04 UNITS/MIN 6 mls/hr IV.CONT CONT [facility] Rx#: [id number] Oral 720 / 720 720 / 720 Output: Urine 2800 / 2800 1200 / 1200 Other: Date of Last Bowel Movement 05/08/18 05/08/18 # Bowel Movements 1 0 - Constitutional no acute distress - Routine HEENT Exam Head: Present: normocephalic Eye: Present: EOMI - Routine Neck Exam Present: supple - Routine Respiratory Exam Present: CTA bilaterally - Routine Cardiovascular Exam Present: irregular rhythm - Routine Abdominal Exam Present: soft - Routine Extremities Exam Absent: edema - Urinary Catheter Management Indwelling Urethral Catheter Cath placed during this visit: yes, but has since been removed by the nurse Reason for continuing: Decision to DC catheter Insertion date: 05/06/18 Insertion time: 18:00 Removal date: 05/07/18 Removal time: 11:00 Results 05/09/18 05:32 05/09/18 05:32 Cardiac Enzymes 05/08/18 05/09/18 Range/Units 04:12 05:32 AST 22 20 (15-37) U/L CBC 05/08/18 05/09/18 Range/Units 04:12 05:32 WBC 6.1 6.5 (4.0-11.0) th/mm3 RBC 3.87 L 4.28 L (4.50-5.90) mil/mm3 Hgb 11.7 L 13.0 (13.0-17.0) gm/dL Hct 34.8 L 38.4 L (39.0-51.0) % Plt Count 146 L 171 (150-450) th/mm3 Neut # (Auto) 3.0 3.0 (1.8-7.7) th/mm3 Lymph # (Auto) 2.1 2.4 (1.0-4.8) th/mm3 [place] # (Auto) 0.6 0.6 (0.0-0.9) th/mm3 Eos # (Auto) 0.3 0.4 (0.0-0.4) th/mm3 Baso # (Auto) 0.0 0.1 (0.0-0.2) th/mm3 Comprehensive Metabolic Panel 05/08/18 05/09/18 Range/Units 04:12 05:32 Sodium 138 143 (136-145) meq/L Potassium 3.8 4.0 (3.5-5.1) meq/L Chloride 105 109 H (98-107) meq/L Carbon Dioxide 25.9 28.4 (21.0-32.0) meq/L BUN 13 11 (7-18) mg/dL Creatinine 0.77 0.86 (0.60-1.30) mg/dL Calcium 7.7 L 8.2 L (8.5-10.1) mg/dL AST 22 20 (15-37) U/L ALT 22 22 (12-78) U/L Alkaline Phosphatase 64 65 (45-117) U/L Total Protein 5.7 L 5.7 L (6.4-8.2) g/dL Albumin 3.1 L 3.0 L (3.4-5.0) g/dL Intake and Output 05/08/18 05/09/18 05/09/18 22:59 06:59 14:59 Intake Total 1170 / 1170 720 / 720 Output Total 2800 / 2800 1200 / 1200 Balance -1630 / -1630 -480 / -480 Intake: IV 450 / 450 NS Inj 1,000 ML @ 60 mls/hr IV. 450 / 450 CONT .[id number] [facility] Rx#:[id number] Oral 720 / 720 720 / 720 Output: Urine 2800 / 2800 1200 / 1200 Other: Date of Last Bowel Movement 05/08/18 05/08/18 # Bowel Movements 1 0 Weight 78 kg Assessment and Plan - Assessment (1) NICM (nonischemic cardiomyopathy) Code(s): I42.8 - Other cardiomyopathies Status: Acute Plan: entresto (and bert/arb) held due to lower bp's, LVEF actually higher by echo here than he reports, metoprolol to be restarted at 50mg bid (2) Syncope due to orthostatic hypotension Code(s): I95.1 - Orthostatic hypotension Status: Acute Plan: some fluid liberalization, reduction in meds, he should avoid mixing meds w/ etoh/xanax/marajuana (3) Afib Code(s): I48.91 - Unspecified atrial fibrillation Status: Acute Plan: rate controlled, on eliquis; may need outpt ablation if rates prove difficult - Plan He appears stable to d/c home provided he can ambulated w/o problems, on reduced meds, will require close f/u with outpt senior it assistant
--- NOTE | 2018-05-09 08:43 | P.PNCC ---
Subjective Subjective Remarks/Hospital Course: 57-year-old male with a medical history significant for CHF, atrial fibrillation on anticoagulation with Eliquis who was recently started on Entresto about 10 days ago and has had a previous stress test per his around February 2018 after which he was told that he did not have any blockages and was diagnosed with a cardiomyopathy. He has been evaluated by Dr. Cruz of [facility] in the [facility] and was evaluated at [facility]. At that time he also had a left pneumothorax for which he required surgery. Patient was at a birthday [employer] today and suddenly passed out and fell to the ground. Patient cannot recall the event however his states that just prior to the event he was doing fine without any chest pain or shortness of breath. He has been feeling more tired over the last week since starting the Entresto. He denies any fevers, chills, chest pain or shortness of breath. In fact he is on room air however was extremely hypotensive on arrival with systolic blood pressure in the 60s and A. fib with RVR. His heart rate improved to the 90s-100s however he remained hypotensive despite 2.5 L of IV fluid bolus and was started on Levophed for pressor support by ER physician. Dr. Burns from [facility] was contacted by Dr. Carter earlier. Patient was accepted for admission by critical care medicine service. When I evaluated the patient in the ER he was on Levophed at 10 mics per minute with a systolic blood pressure 110. He was awake and alert on room air at the time, did not appear short of breath, denied any chest pain. He denied any focal weakness in either extremities or any speech disturbance. He has not had any diarrhea melena or rectal bleeding. Patient was evaluated about 10 days back per his was told "his heart function was around 35%"which is up from the initial 20% in February 2018. 05/07: Patient off levophed, vasopressin put on hold during my exam. Patient offers no complaints. He states that he's had episodes of "dizziness and sweating when I stand" on and off for several years but worse over the past week , since being started on Entresto. He reports prodromal symptoms prior to syncopal episode but denies chest pain, dyspnea, or palpitations during episode. 05/08: Patient stayed off levophed x greater than 24 hours but has required vasopressin on and off throughout yesterday/ today, off since 4 AM this morning. The patient offers no complaints other than wanting to be discharged. 05/09: No overnight events, has been off pressors for 24+ hours, ambulated with PT yesterday and did not have any symptoms of lightheadedness/ dizziness. Restarted lopressor at reduced dose yesterday, tolerated well. Cleared for discharge by lead machinist. Objective Vital Signs / I&O: Vital Signs 05/08/18 09:00 05/08/18 09:18 05/08/18 09:30 Temperature Pulse Rate 108 H 95 H Respiratory Rate 17 19 Blood Pressure 104/68 114/68 Pulse Oximetry 95 96 97 05/08/18 10:00 05/08/18 10:01 05/08/18 10:30 Temperature Pulse Rate 114 H 118 H 101 H Respiratory Rate 25 H 17 18 Blood Pressure 116/60 116/60 105/59 L Pulse Oximetry 95 96 99 05/08/18 11:00 05/08/18 12:00 05/08/18 12:24 Temperature 97.9 F Pulse Rate 99 H 94 H 95 H Respiratory Rate 19 23 19 Blood Pressure 109/57 L 105/60 105/60 Pulse Oximetry 96 95 94 L 05/08/18 13:00 05/08/18 13:30 05/08/18 14:01 Temperature Pulse Rate 98 H 99 H 102 H Respiratory Rate 21 50 H 26 H Blood Pressure 112/64 106/58 L Pulse Oximetry 96 95 96 05/08/18 14:02 05/08/18 14:30 05/08/18 15:00 Temperature Pulse Rate 93 H 100 H 97 H Respiratory Rate 21 22 16 Blood Pressure 100/65 102/64 112/69 Pulse Oximetry 93 L 94 L 96 05/08/18 15:30 05/08/18 16:00 05/08/18 16:30 Temperature 98.7 F Pulse Rate 95 H 95 H 103 H Respiratory Rate 19 22 20 Blood Pressure 115/62 112/70 109/70 Pulse Oximetry 95 95 98 05/08/18 17:00 05/08/18 17:01 05/08/18 17:40 Temperature Pulse Rate 107 H 107 H 107 H Respiratory Rate 24 24 19 Blood Pressure 121/60 121/60 106/76 Pulse Oximetry 93 L 90 L 92 L 05/08/18 18:00 05/08/18 19:02 05/08/18 20:00 Temperature 98.5 F Pulse Rate 103 H 103 H 101 H Respiratory Rate 21 32 H 21 Blood Pressure 106/76 Pulse Oximetry 93 L 98 05/08/18 20:19 05/08/18 21:00 05/08/18 22:00 Temperature Pulse Rate 93 H 94 H Respiratory Rate 27 H 21 Blood Pressure Pulse Oximetry 97 97 05/08/18 22:23 05/08/18 23:00 05/09/18 00:00 Temperature 98.7 F Pulse Rate 96 H 96 H 96 H Respiratory Rate 24 18 15 Blood Pressure 114/78 116/65 118/75 Pulse Oximetry 97 97 95 05/09/18 01:00 05/09/18 02:00 05/09/18 03:00 Temperature Pulse Rate 93 H 80 100 H Respiratory Rate 20 18 21 Blood Pressure 113/65 120/68 113/66 Pulse Oximetry 93 L 93 L 94 L 05/09/18 04:00 05/09/18 05:00 05/09/18 05:01 Temperature 98.6 F Pulse Rate 80 97 H 96 H Respiratory Rate 18 17 18 Blood Pressure 108/64 136/77 Pulse Oximetry 93 L 05/09/18 06:00 Temperature Pulse Rate 87 Respiratory Rate 20 Blood Pressure 114/64 Pulse Oximetry Intake & Output 05/08/18 05/09/18 05/09/18 18:59 06:59 18:59 Intake Total 1779 / 1779 1170 / 1170 Output Total 2800 / 2800 1200 / 1200 Balance -1021 / -1021 -30 / -30 Weight 78 kg Intake: IV 1059 / 1059 450 / 450 NS Inj 1,000 ML @ 60 mls/hr IV. 1000 / 1000 450 / 450 CONT .[id number] [facility] Rx#:[id number] Pitressin Inj 40 UNIT In D5W 59 / 59 Inj 98 ML @ 0.04 UNITS/MIN 6 mls/hr IV.CONT CONT [facility] Rx#: [id number] Oral 720 / 720 720 / 720 Output: Urine 2800 / 2800 1200 / 1200 Other: Date of Last Bowel Movement 05/08/18 05/08/18 # Bowel Movements 1 0 Result Diagrams: 05/09/18 05:32 05/09/18 05:32 Objective Remarks: GEN: No acute distress HEENT: NCAT, PERRL NECK: No JVD CARDIO: Irregularly irregular, HR 80s PULM: Clear to auscultation bilaterally ABD/GI: Soft and non-tender throughout, non-distended EXT/MSK: No peripheral edema, warm and well-perfused SKIN: No rashes or lesions NEURO: GCS 15, A&Ox3, no focal neuro deficits PSYCH: Calm, no agitation Assessment and Plan - Assessment and Plan Plan: 57-year-old male with: Syncope Hypotension A. fib with RVR History of CHF Marijuana positive Plan- Neuro -Continue home dose of xanax Cardiovascular -Continue to hold Entresto until patient follows up with his regular lead machinist this week -Continue home dose of digoxin, metoprolol 50 mg BID (reduced from home dose) -2D echo show ED 40-45%, global hypokinesis, PAP 34 mmHg, mild MR Pulmonary -No active issues GI/liver -Tolerating cardiac diet Renal/ -Lytes normal ID -No active issues Prophylaxis: Pepcid, anticoagulated with Eliquis. D/C home. Patient understands and agrees with med changes and follow up plan. Level 2 follow up To help prompt me to consider important information that might be impacting today's encounter and assessment, information from prior notes written by myself or my colleagues may have been "brought forward" into today's note. My signature on this note, however, is an attestation that I personally performed the exam, history, and/or decision-making noted today, and, unless otherwise indicated, the interactions with patient, family, and staff as well as the review of records all occurred today. I also attest that the listed assessment and stated plan reflect my best clinical judgment today based on the combination of historical information, prior notes, and today's exam/ interactions. Code Status: Full
[2018-05-09] MEDS: Insulin NovoLOG Aspart Correctional Sugar Inj SQ SCH (08:57)
[2018-05-09] MEDS ORDERED: Metoprolol Tartrate 50 MG Tablet PO SCH (09:00)
--- NOTE | 2018-05-09 09:48 | P.DS ---
Date of admission: 05/06/18 18:50 Primary care physician: MARYELLEN HERNANDEZ Attending physician on discharge: Skylar Tierney Anticipated date of discharge: 05/09/18 Brief History from admission: 57-year-old male with a medical history significant for CHF, atrial fibrillation on anticoagulation with Eliquis who was recently started on Entresto about 10 days ago and has had a previous stress test per his around February 2018 after which he was told that he did not have any blockages and was diagnosed with a cardiomyopathy. He has been evaluated by Dr. Cruz of [facility] [place] and was evaluated at [facility]. At that time he also had a left pneumothorax for which he required surgery. Patient was at a birthday green party today and suddenly passed out and fell to the ground. Patient cannot recall the event however his states that just prior to the event he was doing fine without any chest pain or shortness of breath. He has been feeling more tired over the last week since starting the Entresto. He denies any fevers, chills, chest pain or shortness of breath. In fact he is on room air however was extremely hypotensive on arrival with systolic blood pressure in the 60s and A. fib with RVR. His heart rate improved to the 90s-100s however he remained hypotensive despite 2.5 L of IV fluid bolus and was started on Levophed for pressor support by ER physician. Dr. Burns from [facility] was contacted by Dr. Carter earlier. Patient was accepted for admission by critical care medicine service. When I evaluated the patient in the ER he was on Levophed at 10 mics per minute with a systolic blood pressure 110. He was awake and alert on room air at the time, did not appear short of breath, denied any chest pain. He denied any focal weakness in either extremities or any speech disturbance. He has not had any diarrhea melena or rectal bleeding. Patient was evaluated about 10 days back per his was told "his heart function was around 35%"which is up from the initial 20% in February 2018. Patient update on day of discharge: Patient seen by Dr. Burns from cardiology and cleared for discharge. Patient instructed to make an appointment with his regular automatic hemmer this week for follow up appointment, discontinue Entresto, continue Lopressor at reduced dose (50 mg BID instead of 100 mg BID). DS: Diagnosis - Discharge Diagnosis (1) Syncope due to orthostatic hypotension Status: Acute Diagnosis: Principal (2) NICM (nonischemic cardiomyopathy) Status: Chronic Diagnosis: Secondary DS: Summary Hospital Course: 57-year-old male with a medical history significant for CHF, atrial fibrillation on anticoagulation with Eliquis who was recently started on Entresto about 10 days ago and has had a previous stress test per his around February 2018 after which he was told that he did not have any blockages and was diagnosed with a cardiomyopathy. He has been evaluated by Dr. Cruz of [facility] [place] and was evaluated at [facility]. At that time he also had a left pneumothorax for which he required surgery. Patient was at a birthday green party today and suddenly passed out and fell to the ground. Patient cannot recall the event however his states that just prior to the event he was doing fine without any chest pain or shortness of breath. He has been feeling more tired over the last week since starting the Entresto. He denies any fevers, chills, chest pain or shortness of breath. In fact he is on room air however was extremely hypotensive on arrival with systolic blood pressure in the 60s and A. fib with RVR. His heart rate improved to the 90s-100s however he remained hypotensive despite 2.5 L of IV fluid bolus and was started on Levophed for pressor support by ER physician. Dr. Burns from [facility] was contacted by Dr. Carter earlier. Patient was accepted for admission by critical care medicine service. When I evaluated the patient in the ER he was on Levophed at 10 mics per minute with a systolic blood pressure 110. He was awake and alert on room air at the time, did not appear short of breath, denied any chest pain. He denied any focal weakness in either extremities or any speech disturbance. He has not had any diarrhea melena or rectal bleeding. Patient was evaluated about 10 days back per his was told "his heart function was around 35%"which is up from the initial 20% in February 2018. 05/07: Patient off levophed, vasopressin put on hold during my exam. Patient offers no complaints. He states that he's had episodes of "dizziness and sweating when I stand" on and off for several years but worse over the past week , since being started on Entresto. He reports prodromal symptoms prior to syncopal episode but denies chest pain, dyspnea, or palpitations during episode. 05/08: Patient stayed off levophed x greater than 24 hours but has required vasopressin on and off throughout yesterday/ today, off since 4 AM this morning. The patient offers no complaints other than wanting to be discharged. 05/09: No overnight events, has been off pressors for 24+ hours, ambulated with PT yesterday and did not have any symptoms of lightheadedness/ dizziness. Restarted lopressor at reduced dose yesterday, tolerated well. Cleared for discharge by automatic hemmer. - Time Spent with Patient Total time spent providing and/or coordinating discharge services: 20 minutes Less than 30 minutes - Quality: VTE Deep Vein Thrombosis/Pulmonary Embolism Present on Admission: No Exam Vital signs: Vital Signs 05/08/18 10:00 05/08/18 10:01 05/08/18 10:30 Temperature Pulse Rate 114 H 118 H 101 H Respiratory Rate 25 H 17 18 Blood Pressure 116/60 116/60 105/59 L Pulse Oximetry 95 96 99 05/08/18 11:00 05/08/18 12:00 05/08/18 12:24 Temperature 97.9 F Pulse Rate 99 H 94 H 95 H Respiratory Rate 19 23 19 Blood Pressure 109/57 L 105/60 105/60 Pulse Oximetry 96 95 94 L 05/08/18 13:00 05/08/18 13:30 05/08/18 14:01 Temperature Pulse Rate 98 H 99 H 102 H Respiratory Rate 21 50 H 26 H Blood Pressure 112/64 106/58 L Pulse Oximetry 96 95 96 05/08/18 14:02 05/08/18 14:30 05/08/18 15:00 Temperature Pulse Rate 93 H 100 H 97 H Respiratory Rate 21 22 16 Blood Pressure 100/65 102/64 112/69 Pulse Oximetry 93 L 94 L 96 05/08/18 15:30 05/08/18 16:00 05/08/18 16:30 Temperature 98.7 F Pulse Rate 95 H 95 H 103 H Respiratory Rate 19 22 20 Blood Pressure 115/62 112/70 109/70 Pulse Oximetry 95 95 98 05/08/18 17:00 05/08/18 17:01 05/08/18 17:40 Temperature Pulse Rate 107 H 107 H 107 H Respiratory Rate 24 24 19 Blood Pressure 121/60 121/60 106/76 Pulse Oximetry 93 L 90 L 92 L 05/08/18 18:00 05/08/18 19:02 05/08/18 20:00 Temperature 98.5 F Pulse Rate 103 H 103 H 101 H Respiratory Rate 21 32 H 21 Blood Pressure 106/76 Pulse Oximetry 93 L 98 05/08/18 20:19 05/08/18 21:00 05/08/18 22:00 Temperature Pulse Rate 93 H 94 H Respiratory Rate 27 H 21 Blood Pressure Pulse Oximetry 97 97 05/08/18 22:23 05/08/18 23:00 05/09/18 00:00 Temperature 98.7 F Pulse Rate 96 H 96 H 96 H Respiratory Rate 24 18 15 Blood Pressure 114/78 116/65 118/75 Pulse Oximetry 97 97 95 05/09/18 01:00 05/09/18 02:00 05/09/18 03:00 Temperature Pulse Rate 93 H 80 100 H Respiratory Rate 20 18 21 Blood Pressure 113/65 120/68 113/66 Pulse Oximetry 93 L 93 L 94 L 05/09/18 04:00 05/09/18 05:00 05/09/18 05:01 Temperature 98.6 F Pulse Rate 80 97 H 96 H Respiratory Rate 18 17 18 Blood Pressure 108/64 136/77 Pulse Oximetry 93 L 05/09/18 06:00 05/09/18 09:02 Temperature Pulse Rate 87 Respiratory Rate 20 Blood Pressure 114/64 Pulse Oximetry 96 Intake & Output 05/08/18 05/09/18 05/09/18 18:59 06:59 18:59 Intake Total 1779 / 1779 1170 / 1170 Output Total 2800 / 2800 1200 / 1200 Balance -1021 / -1021 -30 / -30 Weight 78 kg Intake: IV 1059 / 1059 450 / 450 NS Inj 1,000 ML @ 60 mls/hr IV. 1000 / 1000 450 / 450 CONT .[id number] HILARIO Rx#:[id number] Pitressin Inj 40 UNIT In D5W 59 / 59 Inj 98 ML @ 0.04 UNITS/MIN 6 mls/hr IV.CONT CONT HILARIO Rx#: [id number] Oral 720 / 720 720 / 720 Output: Urine 2800 / 2800 1200 / 1200 Other: Date of Last Bowel Movement 05/08/18 05/08/18 # Bowel Movements 1 0 Narrative: Please see my progress note from today. There have been no changes in exam prior to discharge. Results Procedures completed during hospitalization: None Pending studies at discharge: None Labs on day of discharge: Labs from last 24 hours 05/09/18 05/09/18 05/09/18 08:57 05:32 05:32 WBC 6.5 RBC 4.28 L Hgb 13.0 Hct 38.4 L MCV 89.8 MCH 30.3 MCHC 33.7 RDW 15.1 Plt Count 171 MPV 8.1 Neut % (Auto) 46.8 Lymph % (Auto) 37.4 [place] % (Auto) 9.0 H Eos % (Auto) 6.0 H Baso % (Auto) 0.8 Neut # (Auto) 3.0 Lymph # (Auto) 2.4 [place] # (Auto) 0.6 Eos # (Auto) 0.4 Baso # (Auto) 0.1 WBC Differential . Differential Comment Auto diff final Sodium 143 Potassium 4.0 Chloride 109 H Carbon Dioxide 28.4 Anion Gap 6 BUN 11 Creatinine 0.86 Estimated GFR Greater than 89 POC Glucose 125 H Fasting Glucose 84 Calcium 8.2 L Magnesium 1.8 Total Bilirubin 0.4 AST 20 ALT 22 Alkaline Phosphatase 65 Total Protein 5.7 L Albumin 3.0 L 05/08/18 05/08/18 05/08/18 20:24 17:42 12:22 WBC RBC Hgb Hct MCV MCH MCHC RDW Plt Count MPV Neut % (Auto) Lymph % (Auto) [place] % (Auto) Eos % (Auto) Baso % (Auto) Neut # (Auto) Lymph # (Auto) [place] # (Auto) Eos # (Auto) Baso # (Auto) WBC Differential Differential Comment Sodium Potassium Chloride Carbon Dioxide Anion Gap BUN Creatinine Estimated GFR POC Glucose 99 113 H 106 Fasting Glucose Calcium Magnesium Total Bilirubin AST ALT Alkaline Phosphatase Total Protein Albumin Preliminary micro results at discharge 05/06/18 20:11 Aerobic Blood Culture - Preliminary Blood - Peripheral No growth in 2 days Anaerobic Blood Culture - Preliminary No growth in 2 days 05/06/18 20:00 Aerobic Blood Culture - Preliminary Blood - Peripheral No growth in 2 days Anaerobic Blood Culture - Preliminary No growth in 2 days - Impressions ITS Impressions Chest CTA 05/06/18 18:38 CONCLUSION: 1. The study is negative for pulmonary embolism. 2. Patchy bibasilar infiltrates, left greater than right. Chest X-Ray 05/07/18 05:00 CONCLUSION: Infiltrate remains left lung base. Rest of lungs are clear. Discharge Plan - Discharge Disposition Patient Disposition: 01 Discharge Home - Discharge Condition Condition: Stable - Discharge Order Discharge Orders: Discharge Order (Routine); Ordered 05/09/18 Ordered By: Skylar Tierney - Discharge Details Anticipated Discharge Date: 05/09/18 - Physicians Team Attending Provider: Carlos Adames Other Providers: Eric Burns MD
== END 2018-05-09 11:50 | disposition home or self-care (01) ==
LOC: NEPE 17:12 → NEDA 18:50 → HIMC 20:45
PROVIDERS: ADMIT Internal Medicine Critical Care Medicine; ATTEND Internal Medicine Critical Care Medicine